=== PATIENT | female | born 1955 | race Caucasian/White ===

== ENCOUNTER → 2019-12-06 12:26 | Outpatient (BNVA) | payer MEDICARE, SELFPAY | PROVIDERS: Family Provider Nurse Practitioner Family; PCP Nurse Practitioner Family; Visit Provider Family Medicine | DX: J02.9 Acute pharyngitis, unspecified (principal); B37.0 Candidal stomatitis | CPT/HCPCS: 87081; 87880 ==

== ENCOUNTER → 2019-12-08 10:55 | Outpatient (BNVA) | payer MEDICARE, SELFPAY | PROVIDERS: Family Provider Nurse Practitioner Family; PCP Nurse Practitioner Family; Visit Provider Family Medicine | DX: I11.0 Hypertensive heart disease with heart failure (principal); I50.30 Unspecified diastolic (congestive) heart failure; E11.9 Type 2 diabetes mellitus without complications | CPT/HCPCS: 80053; 80061; 82044; 82728; 83036; 83550; 85025 ==

== ENCOUNTER 2019-12-20 15:25 | Outpatient (CLI) | payer MEDICARE, SELFPAY ==
--- NOTE | 2019-12-20 15:45 | USCV_ITS ---
Kenia Cano Age: 64 Gender: F : 1955 Exam Date: 12/20/2019 15:32 Ordering Phys: Carolyn Cesar DO Technologist: Edwardo Patterson Exam Location: [facility] [place] Indication: INCREASED ORTHOPNEA BP: 136 / 82 HR: 89 Rhythm: Atrial fibrillation Technical Quality: Fair MEASUREMENTS (Male / Female) Normal Values 2D ECHO LV Diastolic Diameter PLAX 4.9 cm 4.2 - 5.9 / 3.9 - 5.3 cm LV Systolic Diameter PLAX 2.6 cm IVS Diastolic Thickness 1.1 cm 0.6 - 1.0 / 0.6 - 0.9 cm IVS Systolic Thickness 1.4 cm LVPW Diastolic Thickness 1.0 cm 0.6 - 1.0 / 0.6 - 0.9 cm LVPW Systolic Thickness 1.7 cm LVOT Diameter 2.0 cm LV Ejection Fraction 2D Teich 77.4 % LV Ejection Fraction MOD 2C 71.4 % LV Ejection Fraction 2C AL 71.3 % LA Diameter 5.0 cm LA Width 5.1 cm LA Height 6.5 cm RA Width 4.2 cm RA Height 6.5 cm M-MODE LV Diastolic Diameter MM 5.1 cm 4.2 - 5.9 / 3.9 - 5.3 cm LV Systolic Diameter MM 3.4 cm LV Ejection Fraction MM Teich 62.1 % IVS Diastolic Thickness MM 0.7 cm 0.6 - 1.0 / 0.6 - 0.9 cm IVS Systolic Thickness MM 1.2 cm LVPW Diastolic Thickness MM 1.1 cm 0.6 - 1.0 / 0.6 - 0.9 cm LVPW Systolic Thickness MM 1.9 cm RV Diastolic Diameter MM 1.4 cm Aortic Annulus Diameter 3.6 cm LA Ao Ratio MM 1.4 MV E Point Septal Separation 0.4 cm DOPPLER AV Peak Velocity 146.0 cm/s LVOT Peak Velocity 115.0 cm/s AV Area Cont Eq vti 2.3 cm squared AV Area Cont Eq pk 2.5 cm squared MV Area PHT 5.0 cm squared Mitral E to A Ratio 2.4 MV E' Velocity 14.0 cm/s Mitral E to MV E' Ratio 9.3 Mitral E to LV E' Lateral Ratio 6.4 Mitral E to LV E' Septal Ratio 17.3 TR Peak Velocity 308.0 cm/s TR Peak Gradient 37.9 mmHg TV Peak E Velocity 175.0 cm/s Right Atrial Pressure 3.0 mmHg Pulmonary Artery Systolic Pressu 40.9 mmHg FINDINGS Left Ventricle Normal left ventricular size, systolic function and mildly increased wall thickness, with no regional wall motion abnormalities. Left ventricular ejection fraction is estimated at 65 %. Rhythm precludes evaluation of diastolic function. Right Ventricle Normal right ventricular size and systolic function. Right ventricular systolic pressure 40.9 mmHg. Right Atrium Mildly increased right atrial size. Left Atrium Mildly increased left atrial size. Mitral Valve Structurally normal mitral valve. No mitral valve stenosis. Trace mitral valve regurgitation. Aortic Valve Structurally normal trileaflet aortic valve. No aortic valve stenosis. No aortic valve regurgitation. Tricuspid Valve Mild tricuspid valve regurgitation. Pulmonic Valve Pulmonic valve not well visualized. Pericardium No pericardial effusion. Aorta Normal sized aortic root. CONCLUSIONS 1. Normal left ventricular size, systolic function and mildly increased wall thickness, with no regional wall motion abnormalities. Left ventricular ejection fraction is estimated at 65 %. 2. Normal right ventricular size and systolic function. 3. Mild biatrial enlargement. 4. Mild pulmonary hypertension with pulmonary artery pressure estimated at 41 mm Hg. 5. When compared to previous echocardiogram dated 12/11/2017, there may not have been any significant cahnge. Patient remained in atrial fibrillation through out the study. Vandana Katz MD (Electronically Signed) Final Date: 21 December 2019 14:01 S
== END 2019-12-20 15:26 | disposition home or self-care (01) ==
LOC: RAD 15:30
PROVIDERS: Family Provider Nurse Practitioner Family; PCP Family Medicine; Visit Provider Family Medicine
DX: R06.01 Orthopnea; I51.7 Cardiomegaly; I27.20 Pulmonary hypertension, unspecified
CPT/HCPCS: 93306

== ENCOUNTER 2020-01-17 20:35 | Observation (INO) | payer MEDICARE, SELFPAY ==
[2020-01-17 20:40] VITALS: BP 89/54; PULSE 90; RESP 20; TEMP 36.3; O2SAT 98; BMI 49.4
--- NOTE | 2020-01-17 20:48 | XR_ITS ---
WS: [id number] PORTABLE CHEST HISTORY: cough COMPARISON: 02/17/2019 Hyperinflated lungs. Changes of emphysema. Pleural thickening bilaterally but greatest on the RIGHT. Small RIGHT pleural effusion not excluded. No pneumothorax. Cardiac size: Mildly Mediastinum/Aorta: Mild atherosclerosis aorta. No osseous abnormality seen. XR/XR chest 1V portable [id number] IMPRESSION: 1. Chronic emphysema and moderate cardiomegaly. 2. No pneumonia. Tiny RIGHT effusion is not excluded.
--- NOTE | 2020-01-17 20:49 | ECG_ITS ---
Measurements Intervals [place] Rate: 82 P: [place]: 0 QRS: 37 QRSD: 102 T: 14 QT: 394 QTc: 462 ATRIAL FIBRILLATION POSSIBLE RIGHT VENTRICULAR CONDUCTION DELAY [RSR (QR) IN V1/V2] NONSPECIFIC ST & T-WAVE ABNORMALITY Compared to ECG 02/04/2019 18:03:43 T-wave abnormality now present ST (T wave) deviation no longer present Electronically Signed On 01-18-2020 19:36:10 CDT by Vandana Katz M.D. [id number]
--- NOTE | 2020-01-17 21:16 | ED_ITS ---
HPI - General Adult General: Chief complaint: General Medical Stated complaint: BLOOD PRESSURE ISSUES Time Seen by Provider: 01/17/20 20:37 History of Present Illness: HPI narrative: Kenia Redd is a nice 64-year-old female who comes in complaining of episodes of feeling dizzy/lightheaded, short of breath, diaphoretic and as though she could pass out. She will get postnasal drainage when this occurs as well. She states these episodes happen several times a week and have been going on for a long time. Her primary care physician Dr. Cesar has referred her to see Dr. Dwyer on the seventh of next month. She states her symptoms are becoming more frequent and more intense. Because of the intensity of tonight symptoms that is why she elected to come here to the hospital. She states when these episodes happen her blood pressure will usually be very low. EMS reports normotensive blood pressures all throughout their transport here to the hospital. The patient does not mention any pain and specifically she does not complain of any chest pain. Associated symptoms: Reports diaphoresis, dyspnea, malaise and nausea; Deny chest pain, confusion, headache(s), rash, palpitations, syncope or vomiting Review of Systems General: Reports: other (negative unless marked) Const: Reports: fatigue, malaise and diaphoresis; Denies: fever, chills or body aches Eyes: Denies: change in vision or blurry vision ENMT: Denies: throat pain, painful swallowing, hoarseness, ear pain, ear disc harge, Change in hearing or nasal discharge Card: Reports: pre-syncope; Denies: chest pain, palpitations, irregular heart rhythm, syncope, shortness of breath on exertion or shortness of breath when lying down Resp: Reports: shortness of breath; Denies: productive cough, non-productive cough, wheezing, coughing up blood or chest congestion GI: Reports: nausea; Denies: abdominal pain, vomiting, vomiting blood, coffee grounds in vomit, diarrhea, constipation, cramping, blood in stool or black tarry stool : Denies: flank pain, painful urination, urinary frequency, urinary urgency, decreased urine ouput, urinary incontinence or blood in urine Musc: Denies: neck pain, back pain, extremity pain, extremity swelling, joint pain, joint swelling, joint warmth or joint stiffness Skin/Breast: Denies: rash, skin tenderness or yellow skin Neuro: Denies: headache, numbness in extremities, weakness in extremities, changes in sensation, lack of coordination, difficulty walking, dizziness, vertigo or confusion Endo: Denies: excessive thirst, tired all the time, cold intolerance, exces sive sweating, flushing or hot flashes Amor/Lymph: Denies: easy bruising, easy bleeding, petechiae or enlarged lymph nodes All/Imm: Denies: hives, throat swelling, tongue swelling, facial swelling or acute wheezing PFSH ED PFSH: Medical History (Updated 01/18/20 @ 00:26 by Pam Up MD) Arthritis Atrial fibrillation Benign essential HTN Benign tumor of esophagus Bipolar disorder COPD (chronic obstructive pulmonary disease) DDD (degenerative disc disease) Diastolic heart failure Fibromyalgia GERD (gastroesophageal reflux disease) History of pleural effusion History of pulmonary embolism Hypotension Hypothyroidism Mitral regurgitation YUSRA (obstructive sleep apnea) Peripheral edema Polypharmacy PUD (peptic ulcer disease) Pulmonary HTN Spinal stenosis Surgical History S/P hysterectomy S/P thoracentesis S/P tubal ligation Family History Mother Hypertension Depression Bipolar disorder Father Hypertension Sister Bipolar disorder Daughter Bipolar disorder Social History (Updated 01/18/20 @ 00:23 by Pam Up MD) Smoking and tobacco status: former smoker Alcohol intake: never Substance/Drug Use: never Lives independently: Yes Physical Exam Const: COMMON NORMALS: no apparent distress, oriented x3, no limitations, healthy appearing and well nourished EXAM LIMITATIONS: no altered mental status GENERAL APPEARANCE: cooperative, well kempt and well developed ORIENTATION/CONSCIOUSNESS: Yes awake HENMT: COMMON NORMALS: normocephalic, head/scalp atraumatic, hearing grossly normal bilaterally, external ears normal, EAC's normal, external nose normal and moist oral mucous membranes HEAD & SCALP: normal to inspection, normocephalic and atraumatic FACE & SINUS: normal facial exam and face symmetric NOSE: external nose normal and nares normal EXTERNAL EAR: Yes external ears normal EXTERNAL AUDITORY CANAL: EAC's normal MOUTH: oral and palatal mucosa normal and tongue normal Eye: COMMON NORMALS: PERRL, EOMs intact bilaterally, conjunctivae normal and no scleral icterus GENERAL EYE: normal appearance of both eyes and normal light reflex CONJUNCTIVA: Yes conjunctivae normal SCLERA: sclerae normal CORNEA: Yes corneas normal PUPIL: Yes PERRL DIRECT OPHTHALMOSCOPY: Yes normal light reflex Neck/C-Spine: COMMON NORMALS: full ROM, no lymphadenopathy, supple, no m eningeal signs and no JVD GENERAL: Yes normal visual inspection and Yes trachea midline CERVICAL SPINE: Yes cervical ROM normal Chest: COMMONS NORMALS: inspection of chest normal and palpation of chest normal Resp: COMMON NORMALS: normal respiratory effort, no retractions, no use of accessory muscles and clear to auscultation bilaterally EFFORT & INSPECTION: Yes able to speak in complete sentences AUSCULTATION: clear to auscultation bilaterally Cardio: COMMON NORMALS: no JVD, regular rate, regular rhythm, S1 normal heart sound, S2 normal heart sound, no gallops, no clicks, no murmurs and no rub JUGULAR VENOUS DISTENTION: no JVD RATE: regular rate RHYTHM: regular rhythm HEART SOUNDS: S1 normal and S2 normal GI: COMMON NORMALS: soft to palpation, non-tender, no hepatosplenomegaly and no masses INSPECTION: Yes normal to inspection PALPATION: Yes soft and Yes no hepatosplenomegaly : COMMON NORMALS: Yes no CVA tenderness BLADDER/KIDNEY EXAM: Yes no CVA tenderness Back/Pelvis: COMMON NORMALS: no CVA tenderness, thoracic and lumbar spine normal to inspection, no thoracic nor lumbar tenderness and thoraco-lumbar ROM normal Extremity: COMMON NORMALS: normal to inspection, full ROM, normal capillary refill, no joint enlargement, no clubbing, cyanosis or edema and no calf tenderness Neuro: COMMON NORMALS: oriented x3, CN's II-XII intact bilaterally, moves all extremities, no focal motor deficits and no sensory deficits noted MENINGEAL SIGNS: Yes no meningeal signs Psych: COMMON NORMALS: mental status grossly normal, thought process normal, cooperative, affect normal, speech normal and activity/motor behavior normal APPEARANCE: Yes well kempt SPEECH: Yes normal speech THOUGHT PROCESS: normal thought process Skin: COMMON NORMALS: no rashes or lesions noted, skin turgor normal, no jaundice, no petechiae and no mottling GENERAL SKIN EXAM: no rashes or lesions noted and turgor normal Course Vital Signs: Vital signs: Vital Signs Temperature 97.5 F L 04/29/20 03:56 Pulse Rate 76 01/18/20 03:56 Respiratory Rate 18 01/18/20 03:56 Blood Pressure 144/78 01/18/20 03:56 Pulse Oximetry 96 01/18/20 03:56 MDM - General Adult MDM Narrative: Medical decision making narrative: The case is reviewed with Dr. Up, he agrees to go ahead and admit for dehydration, near syncope and elevated creatinine. The patient clinically does not appear to be in CHF as her chest x-ray appears to be at its baseline, she has no orthopnea or dyspnea on exertion. Urinalysis is pending at this time and we will treat that appropriately if her test comes back positive for infection. Lab Data: Attestation: I reviewed the patient's lab results. Labs: Lab Results 01/17/20 01/17/20 01/17/20 Range/Units 20:58 20:58 20:58 WBC 10.4 H (4.0-10.0) 10^3/ uL RBC 4.56 (4.1-5.3) 10^6/u L Hgb 12.4 (11.5-15.3) g/dL Hct 42.0 (37.0-47.0) % MCV 92.1 (81-99) fL MCH 27.2 L (28.0-34.0) pg MCHC 29.5 L (30.0-36.0) g/dL RDW 22.6 H (12.1-15.1) % Plt Count 362 (130-400) 10^3/c mm MPV 10.1 (7.4-10.4) fL Neut % (Auto) 60.8 % Lymph % (Auto) 26.4 % [place] % (Auto) 8.8 % Eos % (Auto) 2.3 % Baso % (Auto) 1.2 % Neut # (Auto) 6.3 (1.8-7.7) 10^3/u L Lymph # (Auto) 2.7 (0.8-4.8) 10^3/u L [place] # (Auto) 0.9 (0.2-0.9) 10^3/u L Eos # (Auto) 0.2 (0.0-0.8) 10^3/u L Baso # (Auto) 0.1 (0.0-0.1) 10^3/u L Nucleated RBC % (a uto) 0 % Nucleated RBCs # 0.0 /100WBC PT 18.10 H (10.5-13.3) SECO NDS INR 1.45 H (0.8-1.2) Sodium (136-145) mmol/L Potassium (3.5-5.1) mmol/L Chloride (98-107) mmol/L Carbon Dioxide (22-29) mmol/L Anion Gap (5-19) BUN (8-23) mg/dL Creatinine (0.5-0.9) mg/dL GFR Calculation (90-130) mL/min Glucose (65-115) mg/dL Calculated Osmolal ity (285-295) mOsm/k g Calcium (8.5-10.5) mg/dL Magnesium (1.7-2.3) mg/dL Total Bilirubin (0.15-1.2) mg/dL AST (0-32) U/L ALT (0-33) U/L Alkaline Phosphata se (35-105) IU/L Creatine Kinase (26-192) U/L Troponin T Baselin e 17 H (0-10) ng/mL NT-Pro-B Natriuret Pep (0-125) pg/mL Total Protein (6.6-8.7) g/dL Albumin (3.5-5.2) g/dL Globulin (1.3-4.6) g/dL Lipase (13-60) U/L //20 Range/Units 21:20 WBC (4.0-10.0) 10^3/ uL RBC (4.1-5.3) 10^6/u L Hgb (11.5-15.3) g/dL Hct (37.0-47.0) % MCV (81-99) fL MCH (28.0-34.0) pg MCHC (30.0-36.0) g/dL RDW (12.1-15.1) % Plt Count (130-400) 10^3/c mm MPV (7.4-10.4) fL Neut % (Auto) % Lymph % (Auto) % [place] % (Auto) % Eos % (Auto) % Baso % (Auto) % Neut # (Auto) (1.8-7.7) 10^3/u L Lymph # (Auto) (0.8-4.8) 10^3/u L [place] # (Auto) (0.2-0.9) 10^3/u L Eos # (Auto) (0.0-0.8) 10^3/u L Baso # (Auto) (0.0-0.1) 10^3/u L Nucleated RBC % (a uto) % Nucleated RBCs # /100WBC PT (10.5-13.3) SECO NDS INR (0.8-1.2) Sodium 138 (136-145) mmol/L Potassium 3.6 (3.5-5.1) mmol/L Chloride 98 (98-107) mmol/L Carbon Dioxide 28 (22-29) mmol/L Anion Gap 15.6 (5-19) BUN 19 (8-23) mg/dL Creatinine 2.2 H (0.5-0.9) mg/dL GFR Calculation 22.4 L (90-130) mL/min Glucose 121 H (65-115) mg/dL Calculated Osmolal ity 284 L (285-295) mOsm/k g Calcium 9.7 (8.5-10.5) mg/dL Magnesium 2.3 (1.7-2.3) mg/dL Total Bilirubin 0.4 (0.15-1.2) mg/dL AST 16 (0-32) U/L ALT 11 (0-33) U/L Alkaline Phosphata se 87 (35-105) IU/L Creatine Kinase 28 (26-192) U/L Troponin T Baselin e (0-10) ng/mL NT-Pro-B Natriuret Pep 1432 H (0-125) pg/mL Total Protein 6.6 (6.6-8.7) g/dL Albumin 3.8 (3.5-5.2) g/dL Globulin 2.8 (1.3-4.6) g/dL Lipase 25 (13-60) U/L Imaging Data^: CXR: My impression: Cardiomegaly. Bilateral effusions consistent with previous. EKG Data^: EKG 1: Attestation: I personally reviewed and interpreted this EKG as follows: EKG interpretation date: 01/17/20 EKG interpretation time: 21:40 Interpretation: A. fib/flutter with a ventricular rate of 92 beats a minute, normal axis, no with acute ST or T wave changes. Discharge Plan Discharge Patient Disposition: Placed in Observation Admit Provider: Pam Up Clinical Impression: Acute dehydration, Near syncope Condition: Stable Referrals: Carolyn Cesar DO [Primary Care Provider] - Verona Reynolds NP [Family Provider] - Discharge Date/Time: 01/18/20 01:08 Coding Level of Care Code ED Commercial [employer]umber for Chg Fwd Exam Comprehensive
[2020-01-17 21:17] LABS: Basophils # 0.1 10^3/uL (0.0-0.1); Basophils % 1.2 %; Eosinophils # 0.2 10^3/uL (0.0-0.8); Eosinophils % 2.3 %; Hemoglobin 12.4 g/dL (11.5-15.3); Lymphocytes # 2.7 10^3/uL (0.8-4.8); Lymphocytes % 26.4 %; Mean Corpuscular HGB Conc 29.5 g/dL (30.0-36.0); Mean Corpuscular Hemoglobin 27.2 pg (28.0-34.0); Mean Corpuscular Volume 92.1 fL (81-99); Mean Platelet Volume 10.1 fL (7.4-10.4); Monocytes # 0.9 10^3/uL (0.2-0.9); Monocytes % 8.8 %; Neutrophils # 6.3 10^3/uL (1.8-7.7); Neutrophils % 60.8 %; Nucleated Red Blood Cells % 0 %; Platelet Count 362 10^3/cmm (130-400); Red Blood Count 4.56 10^6/uL (4.1-5.3); Red Cell Distribution Width 22.6 % (12.1-15.1); White Blood Count 10.4 10^3/uL (4.0-10.0)
[2020-01-17 21:23] LABS: INR 1.45 (0.8-1.2)
[2020-01-17 21:31] LABS: Troponin(5th) Baseline 17 ng/mL (0-10)
[2020-01-17] MEDS: sodium chloride 0.9% 1,000 ML 100 ML IV (21:54)
[2020-01-17 21:55] VITALS: BP 120/84; PULSE 70; RESP 18; O2SAT 96
[2020-01-17] MEDS: sodium chloride 0.9% 1,000 ML 999 ML IV ×2 (21:55→23:54)
[2020-01-17 22:14] LABS: Alanine Aminotransferase 11 U/L (0-33); Albumin Level 3.8 g/dL (3.5-5.2); Alkaline Phosphatase 87 IU/L (35-105); Anion Gap 15.6 (5-19); Aspartate Amino Transferase 16 U/L (0-32); Blood Urea Nitrogen 19 mg/dL (8-23); Calcium 9.7 mg/dL (8.5-10.5); Carbon Dioxide 28 mmol/L (22-29); Chloride 98 mmol/L (98-107); Creatine Phosphokinase 28 U/L (26-192); Globulin 2.8 g/dL (1.3-4.6); Glomerular Filtration Rate 22.4 mL/min (90-130); Glucose 121 mg/dL (65-115); Lipase 25 U/L (13-60); Magnesium 2.3 mg/dL (1.7-2.3); NT Pro B Type Natriuretic Pept 1432 pg/mL (0-125); Osmolality Calculated 284 mOsm/kg (285-295); Potassium 3.6 mmol/L (3.5-5.1); Sodium 138 mmol/L (136-145); Total Bilirubin 0.4 mg/dL (0.15-1.2); Total Protein 6.6 g/dL (6.6-8.7)
[2020-01-17 22:30] VITALS: BP 117/81; BP 118/101; BP 135/108; PULSE 73; PULSE 87; PULSE 92
--- NOTE | 2020-01-17 23:05 | PM.HP ---
Providers/Chief Complaint Primary Care Provider: Carolyn Cesar DO Chief Complaint: BLOOD PRESSURE ISSUES History of Present Illness Kenia Cano is a 64 year old female carries diagnosis of PE, DVT chronic anticoagulation with Xarelto, diastolic congestive heart failure, COPD, YUSRA presented today with chief complaint of presyncope and low blood pressure. Patient has been evaluated by PCP, she was given meclizine, she is on multiple antihypertensives along to narcotics. She was asked to follow-up with cardiology, previous echo revealed preserved ejection fraction with pulmonary hypertension. No significant valve motion abnormalities were observed. In 2019 she had left-sided pleural effusion diagnosed as hemothorax hence rivaroxaban dose was decreased to 10 mg a day. Patient is stating that her symptoms started 3 months ago which were dizziness which she is describing as surroundings spinning, she was given meclizine which improved her symptoms but she has not been compliant with that medication. She has maintained a blood pressure log, mostly at night she becomes tachycardic and hypertensive and in the morning after taking 4 antihypertensives her blood pressure bottoms out. No recent falls, she is denying chest pain, she is endorsing use of CPAP for sleep apnea, endorsing orthopnea. Her leg swelling has been improved. Diagnostics in ER revealed hypertension systolic blood pressure 160 mmHg, heart rate 80 A. fib without RVR, saturating well on room air, high BNP 1432, chest x-ray reveals chronic cardiomegaly bilateral pleural effusion, EKG shows A. fib without RVR without ischemic changes Patient felt dizzy when I tried to do Wells-Hallpike maneuver however nystagmus was not observed She was given 1 L normal saline which I have discontinued Review of Systems Const: Denies: fever or chills Eyes: Denies: change in vision ENMT: Denies: throat pain Card: Reports: irregular heart rhythm, pre-syncope, shortness of breath on exertion and shortness of breath when lying down; Denies: chest pain or swelling of feet/ankles Resp: Reports: shortness of breath; Denies: non-productive cough GI: Denies: abdominal pain, nausea or vomiting : Denies: flank pain Musc: Denies: neck pain Skin/Breast: Denies: rash Neuro: Denies: headache Psych: Denies: anxiety Endo: Denies: excessive urination Amor/Lymph: Denies: easy bruising All/Imm: Denies: hives Medications/Allergies Home Medications Medication Instructions Recorded Confirmed Last Taken Type albuterol sulfate 2.5 mg INHALATION BID PRN ml 10/05/19 12/08/19 Unknown History aspirin 81 mg tablet,delayed 81 mg PO DAILY tab 10/05/19 12/08/19 Unknown History release cholecalciferol (vitamin D3) 25 2,000 unit PO DAILY cap 10/05/19 12/08/19 Unknown History mcg (1,000 unit) capsule fluticasone propionate 50 2 spray INTRANASAL DAILY ml 10/05/19 12/08/19 Unknown History mcg/actuation nasal spray,suspension furosemide 20 mg tablet 40 mg PO DAILY tab 10/05/19 12/08/19 Unknown History gabapentin 300 mg capsule 300 mg PO QID PRN cap 10/05/19 12/08/19 Unknown History hydrochlorothiazide 12.5 mg tablet 12.5 mg PO DAILY tab 10/05/19 12/08/19 Unknown History hydrocodone 10 mg-acetaminophen 1 tab PO Q6H PRN 10/05/19 12/08/19 Unknown History 325 mg tablet ipratropium 20 mcg-albuterol 100 2 puff INHALATION QID gm 10/05/19 12/08/19 Unknown History mcg/actuation mist for inhalation loperamide 2 mg capsule 2 mg PO DIRECTED PRN cap 10/05/19 12/08/19 Unknown History multivitamin 1 tab PO DAILY tab 10/05/19 12/08/19 Unknown History potassium chloride 10 mEq 10 meq PO BID 10/05/19 12/08/19 Unknown History tablet,extended release rivaroxaban 10 mg tablet 10 mg PO DAILY tab 10/05/19 12/08/19 Unknown History tizanidine 4 mg capsule 8 mg PO TID PRN cap 10/05/19 12/08/19 Unknown History morphine 30 mg capsule,extended 30 mg PO BID cap 11/07/19 12/08/19 Unknown History release 24 hr multiphase isosorbide mononitrate 30 mg 15 mg PO BID #60 tab 11/21/19 12/08/19 Unknown Rx tablet,extended release 24 hr clotrimazole 10 mg lorelei 10 mg MUCOUS MEM .COMPLEX #35 tab 12/06/19 12/08/19 Unknown Rx fluoxetine 40 mg capsule 40 mg PO DAILY #90 cap 12/09/19 Unknown Rx omeprazole 20 mg capsule,delayed 20 mg PO BID #90 cap 12/09/19 Unknown Rx release atorvastatin 10 mg tablet 10 mg PO DAILY #45 tab 12/12/19 Unknown Rx ferrous sulfate 325 mg (65 mg 325 mg PO DAILY #30 tab 12/12/19 Unknown Rx iron) tablet blood sugar diagnostic #100 each 12/13/19 Unknown Rx blood-glucose meter #1 each 12/13/19 Unknown Rx lancets #200 each 12/13/19 Unknown Rx metoprolol tartrate 50 mg tablet 50 mg PO BID #60 tab 12/28/19 Unknown Rx Allergies Allergy/AdvReac Type Severity Reaction Status Date / Time clindamycin Allergy Unknown Unknown Verified 12/08/19 10:27 duloxetine [From Cymbalta] Allergy Unknown Unknown Verified 12/08/19 10:27 lanolin Allergy Unknown Unknown Verified 12/08/19 10:27 Sulfa (Sulfonamide Allergy Unknown Unknown Verified 12/08/19 10:27 Antibiotics) venlafaxine Allergy Unknown Unknown Verified 12/08/19 10:27 PFSH Acute PFSH: Medical History Arthritis Atrial fibrillation Benign essential HTN Benign tumor of esophagus Bipolar disorder COPD (chronic obstructive pulmonary disease) DDD (degenerative disc disease) Diastolic heart failure Fibromyalgia GERD (gastroesophageal reflux disease) History of pleural effusion History of pulmonary embolism Hypotension Hypothyroidism Mitral regurgitation YUSRA (obstructive sleep apnea) Peripheral edema PUD (peptic ulcer disease) Pulmonary HTN Spinal stenosis Surgical History S/P hysterectomy S/P thoracentesis S/P tubal ligation Family History Mother Hypertension Depression Bipolar disorder Father Hypertension Sister Bipolar disorder Daughter Bipolar disorder Social History (Updated 01/18/20 @ 00:23 by Pam Up MD) Smoking and tobacco status: former smoker Alcohol intake: never Substance/Drug Use: never Lives independently: Yes Vitals/I&O/Wt Last Vital Signs Temp 97.3 F L 01/17/20 20:40 Pulse 73 01/17/20 22:30 Resp 18 01/17/20 21:55 BP 117/81 01/17/20 22:30 Pulse Ox 96 01/17/20 21:55 Weight last 48 hrs Weight 122.47 kg Physical Exam Narrative: EXAM NARRATIVE: Morbidly obese female, very pleasant Neurologically nonfocal exam Sitting in semi-[place] position, saturating well on room air Variable S1-S2, no active signs of fluid overload Lungs reveal bilateral breath sounds with mild rhonchi at the bases Abdomen soft, distended, visceral obesity, bowel sounds present EOMI, PERRLA Dell-Hallpike maneuver negative did not notice any nystagmus however patient felt dizzy on change of position of the head No signs ischemia gangrene ulcer of lower extremities Appropriate mood and affect Patient has multiple tender points, history of fibromyalgia Data : 01/17/20 20:58 01/17/20 21:20 Micro: Microbiology 01/17/20 20:58 Blood Culture - Preliminary Blood SPECIMEN COLLECTED 01/17/20 20:55 Blood Culture - Preliminary Blood SPECIMEN COLLECTED A&P Assessment and plan (1) Hypotension: Status: Acute (2) Polypharmacy: Status: Acute (3) Near syncope: Status: Acute (4) Benign essential HTN: Status: Chronic (5) Diastolic heart failure: Status: Chronic Qualifiers: Heart failure chronicity: chronic Qualified Code(s): I50.32 - Chronic diastolic (congestive) heart failure (6) Acute worsening of stage 3 chronic kidney disease: Status: Acute (7) Morbid obesity: Status: Acute (8) Sleep apnea: Status: Acute Additional A&P Information Presyncope due to hypotension Dell-Hallpike maneuver negative however patient felt dizzy on change of position of head No EKG changes for any coronary ischemia Patient is already anticoagulated less likely to be PE to be the cause of presyncope I believe her symptoms are secondary to polypharmacy due to use of 4 antihypertensives including 2 diuretics Add meclizine and hold antihypertensives Acute on chronic diastolic congestive heart failure exacerbation Heart failure preserved ejection fraction exacerbation due to noncompliance with CPAP for her sleep apnea Her presentation is consistent with right-sided heart failure I would continue Lasix, hold hydrochlorothiazide Discontinue fluids that was started in the ER Acute on chronic kidney disease stage III Baseline creatinine seems to be normal, current creatinine 2.2 This seems secondary to cardiorenal etiology due to congestive heart failure and hypotension Monitor creatinine, anticipating improvement with diuresis A. fib without RVR Continue low-dose of rivoraxaban I would continue metoprolol to voice withdrawal from beta-shannan Polypharmacy I would hold her opioids, hold Imdur and hydrochlorothiazide Considering history of sleep apnea and use of opioids I have counseled patient that she will be at risk of respiratory failure especially with use of opioids and underlying multiple comorbidities, if needed for her degenerative joint disease I would use oxycodone only for as needed use -Needs significant reduction in her medications to avoid hypotension and readmissions Sleep apnea: Auto titration CPAP at night Full code DVT prophylaxis patient also already anticoagulated with xa inhibitor Cardiac diet Attestations Medical Necessity Statement*: Anticipating discharge in less than 48 hours, needs adjustment of medications because of polypharmacy induced hypotension Time Spent in Patient Care: 45 Coding Level of Care Code Acute News Technical Director for Carlos Aguayo Diagnoses Hypotension I95.9 Polypharmacy Z79.899 Near syncope R55 Benign essential HTN I10 Diastolic heart failure I50.32 Heart failure chronicity: chronic Acute worsening of stage 3 chronic kidney disease N18.3 Morbid obesity E66.01 Sleep apnea G47.30
[2020-01-17 23:30] LABS: Amphetamines Screen Urine Negative (Negative); Barbiturates Screen Urine Negative (Negative); Benzodiazepines Screen Urine Negative (Negative); Cocaine Screen Urine Negative (Negative); Opiate Screen Urine Positive (Negative); PCP Screen Urine Negative (Negative); THC Screen Urine Negative (Negative)
[2020-01-17 23:31] LABS: Urine Appearance Cloudy (CLEAR); Urine Color Yellow (Yellow); pH Urine 6 (5-7)
[2020-01-17 23:32] LABS: Add Urine Culture? Yes; Bacteria Urine 2+; Bilirubin Urine Neg (NEGATIVE); Blood Urine 2+ (Negative); Glucose Urine UA Norm (Normal); Ketones Urine Negative (Negative); Leukocyte Esterase Urine 1+ (Negative); Nitrate Urine Positive (Negative); Protein Urine Neg (Negative); RBC Urine 0-4 /hpf (0-2); Squamous Epithelial Cell Urine 0-4 (0-5); Urobilinogen Urine Norm (Negative); WBC Urine 25-40 /hpf (0-5)
[2020-01-18] VITALS (16 sets, daily range): BP systolic 128–155; BP diastolic 70–96; PULSE 73–107; RESP 16–22; TEMP 36.4–36.9; O2SAT 94–99
[2020-01-18] MEDS: cefTRIAXone 1,000 MG in sodium chloride 0.9% (plus) 50 ML 100 MG IV (00:49)
[2020-01-18] MEDS: metoprolol tartrate 25 mg Tablet PO ×2 (01:54→09:18)
[2020-01-18] MEDS: oxyCODONE 5 mg IR Tab/Cap PO ×3 (02:01→13:43)
[2020-01-18 05:17] LABS: Basophils # 0.1 10^3/uL (0.0-0.1); Basophils % 1.1 %; Eosinophils # 0.4 10^3/uL (0.0-0.8); Eosinophils % 4.3 %; Hematocrit 42.3 % (37.0-47.0); Hemoglobin 12.4 g/dL (11.5-15.3); Lymphocytes % 34.2 %; Mean Corpuscular HGB Conc 29.3 g/dL (30.0-36.0); Mean Corpuscular Hemoglobin 26.8 pg (28.0-34.0); Mean Corpuscular Volume 91.4 fL (81-99); Mean Platelet Volume 10.1 fL (7.4-10.4); Monocytes # 0.8 10^3/uL (0.2-0.9); Monocytes % 8.8 %; Neutrophils # 4.5 10^3/uL (1.8-7.7); Neutrophils % 51.3 %; Nucleated Red Blood Cells % 0 %; Platelet Count 330 10^3/cmm (130-400); Red Blood Count 4.63 10^6/uL (4.1-5.3); Red Cell Distribution Width 22.5 % (12.1-15.1); White Blood Count 8.8 10^3/uL (4.0-10.0)
[2020-01-18 05:39] LABS: Anion Gap 15.3 (5-19); Blood Urea Nitrogen 18 mg/dL (8-23); Calcium 9.9 mg/dL (8.5-10.5); Carbon Dioxide 28 mmol/L (22-29); Chloride 100 mmol/L (98-107); Glomerular Filtration Rate 41.1 mL/min (90-130); Glucose 125 mg/dL (65-115); Osmolality Calculated 288 mOsm/kg (285-295); Potassium 3.3 mmol/L (3.5-5.1); Sodium 140 mmol/L (136-145)
[2020-01-18] MEDS: ipratropium-albuterol 3 mL Neb INHALATION (08:31)
[2020-01-18] MEDS: FUROsemide 40 mg Tablet PO (09:17)
[2020-01-18] MEDS: atorvastatin 40 mg Tablet 10 MG PO (09:18)
[2020-01-18] MEDS: fluoxetine 20 mg Capsule 40 MG PO (09:18)
[2020-01-18] MEDS: meclizine 25 mg tablet PO (09:18)
[2020-01-18] MEDS: pantoprazole DR 40 mg Tablet PO (09:18)
[2020-01-18] MEDS: aspirin 81 mg EC Tablet PO (09:18)
[2020-01-18] MEDS: rivaroxaban 10 mg Tablet PO (09:18)
--- NOTE | 2020-01-18 09:57 | PC.CHAP ---
Pastoral Care Encounter/Spiritual Assessment Type of Contact [] Declined computer applications instructor visit [] Patient/Family/Request visit [] Outpatient visit [] Follow-up visit [] Physician referral [] Code/Alert [x Routine visit [] Staff referral [] Actively dying [] Patient sleeping [] Family support [] [] Out of room [] Palliative care [] [] Receiving care in room [] Pre-surgical visit [] Trauma [] Long length of stay [] ICU visit [] Other: Relational/Emotional Strength [] Patient feels connected with others/family/visitors/staff [] Distress [] Loneliness/isolation [] Abandonment Spirituality of Patient [] Person of Niurka [] Attends Moravian of their Niurka [] Believes in Prayer [] Reads Bible or Caodaism materials [] There are Spiritual issues to be addressed Fire Control Assistant Interventions [x] Prayer [] Active listening [] Non-anxious presence [] Spiritual/emotional support [] Crisis/trauma care [] Spiritual counseling [] Bereavement support [] Provided bereavement packet [] Provided Bible/devotional materials [] Provided toy/stuffed animal, coloring book to patient or family member [] Provided Communion [] Anointing/[place] [] Salvation [x] Completed spiritual assessment [] Other: Impact on Illness or Injury [] Angry [] Fearful [] Anxious [] Often cries [] Exhaustion [] Unable to work [] Unable to attend nondenominational [] Unable to walk/stand [] Unable to read [] Unable to drive [] Unable to eat/drink [] Unable to sleep [] Unable to be with family [] Patient intubated [] Other: Summary Patient feeling better Time spent with patient 5 min
--- NOTE | 2020-01-18 22:34 | P.DS_ITS ---
Discharge Providers Date of Admission: 01/17/20 23:05 Date of Discharge: January 18, 2020 Attending Provider at Admission: Pam Up MD Attending Provider at Discharge: Sebastian Hauser Primary Care Provider: Carolyn Cesar DO Diagnoses at Discharge Discharge Diagnosis (1) Hypotension: Status: Acute (2) Polypharmacy: Status: Acute (3) Near syncope: Status: Acute (4) Benign essential HTN: Status: Chronic (5) Diastolic heart failure: Status: Chronic Qualifiers: Heart failure chronicity: chronic Qualified Code(s): I50.32 - Chronic diastolic (congestive) heart failure (6) Acute worsening of stage 3 chronic kidney disease: Status: Acute (7) Morbid obesity: Status: Acute (8) Sleep apnea: Status: Acute Reason for Visit Reason for Visit: Reason For Visit: BLOOD PRESSURE ISSUES Hospital Course Hospital Course: Pleasant 64-year-old lady was placed in observation after presenting with fluctuation in blood pressure, episodes of dizziness, noted to have hypotension during the hospitalization, suspected secondary to a number of her medications, possibly dehydration as well. She had no persistence of dizziness. Her blood pressure improved, and orthostatic blood pressures the next day were normal after holding a number of her medications. Discussed with her, and she does state at home her blood pressures do tend to fluctuate quite a bit. High in the evening, a number of times low in the morning. Discussed with her to monitor closely. She does feel she may have been somewhat dehydrated after going outside. She was treated with IV hydration initially, although subsequently due to concern for CHF exacerbation received a dose of Lasix. Incidentally noted possible urinary tract infection on presentation as well. Received a dose of Rocephin. Will give prescription of Levaquin to complete at home. Final urine so far not reported, please follow-up on the final result if available. On discharge her HCTZ is held, metoprolol and gabapentin dose is decreased. She is already on anticoagulation for atrial fibrillation. And is on aspirin. Suspicion that this is related to CVA/TIA is low given her symptoms and observed hypotension, however, she is referred for assessment by carotid Doppler ultrasonography. Please follow-up the results with her. For now will attempt to escalate atorvastatin dose to 20 mg. Attempt to bring toward high- dose atorvastatin equivalent if this is possible. Physical Exam Const: COMMON NORMALS: no apparent distress (She reports is feeling much better. Ready to return home.) and oriented x3 NUTRITIONAL APPEARANCE: overweight HENMT: COMMON NORMALS: oropharynx normal Neck/C-Spine: COMMON NORMALS: no JVD Resp: COMMON NORMALS: normal respiratory effort and clear to auscultation braulio aterally AUSCULTATION: clear to auscultation bilaterally Cardio: COMMON NORMALS: no JVD, regular rhythm, S1 normal heart sound, S2 normal heart sound and no murmurs RHYTHM: regular rhythm HEART SOUNDS: S1 normal and S2 normal GI: COMMON NORMALS: normal to inspection, nondistended, normoactive bowel sounds, soft to palpation and non-tender PALPATION: Yes soft Extremity: COMMON NORMALS: no joint enlargement and no pedal edema Neuro: COMMON NORMALS: oriented x3 and moves all extremities Skin: COMMON NORMALS: no rashes or lesions noted GENERAL SKIN EXAM: no rashes or lesions noted Discharge Data Data Completed and Pending: Completed Studies During Hospitalization Category Date Time Status XR chest 1V tray ble [id number] Stat Exams 01/17/20 20:48 Completed Pending at discharge Category Date Time Status Arterial Blood Ga s W/O Coox Routine Lab 01/17/20 21:31 Received Blood Culture Sta t Lab 01/17/20 20:58 Results Urine Culture Sta t Lab 01/17/20 23:09 Received Labs from last 24 hours 01/18/20 01/18/20 01/17/20 04:46 04:46 23:31 WBC 8.8 RBC 4.63 Hgb 12.4 Hct 42.3 MCV 91.4 MCH 26.8 L MCHC 29.3 L RDW 22.5 H Plt Count 330 MPV 10.1 Neut % (Auto) 51.3 Lymph % (Auto) 34.2 [place] % (Auto) 8.8 Eos % (Auto) 4.3 Baso % (Auto) 1.1 Neut # (Auto) 4.5 Lymph # (Auto) 3.0 [place] # (Auto) 0.8 Eos # (Auto) 0.4 Baso # (Auto) 0.1 Nucleated RBC % (a uto) 0 Nucleated RBCs # 0.0 Sodium 140 Potassium 3.3 L Chloride 100 Carbon Dioxide 28 Anion Gap 15.3 BUN 18 Creatinine 1.3 H GFR Calculation 41.1 L Glucose 125 H Calculated Osmolal ity 288 Calcium 9.9 Troponin T 120 Min rich 12.70 H Delta Troponin T -4.30 L Urine Color Urine Appearance Urine pH Ur Specific Gravit y Urine Protein Urine Glucose (UA) Urine Ketones Urine Blood Urine Nitrate Urine Bilirubin Urine Urobilinogen Ur Leukocyte Esther ase Urine RBC Urine WBC Ur Squamous Epith Cells Urine Bacteria Urine Opiates Scre en Ur Barbiturates Sc reen Ur Phencyclidine S crn Ur Amphetamines Sc reen U Benzodiazepines Scrn Urine Cocaine Scre en U Marijuana (THC) Screen 01/17/20 01/17/20 23:09 23:09 WBC RBC Hgb Hct MCV MCH MCHC RDW Plt Count MPV Neut % (Auto) Lymph % (Auto) [place] % (Auto) Eos % (Auto) Baso % (Auto) Neut # (Auto) Lymph # (Auto) [place] # (Auto) Eos # (Auto) Baso # (Auto) Nucleated RBC % (a uto) Nucleated RBCs # Sodium Potassium Chloride Carbon Dioxide Anion Gap BUN Creatinine GFR Calculation Glucose Calculated Osmolal ity Calcium Troponin T 120 Min rich Delta Troponin T Urine Color Yellow Urine Appearance Cloudy Urine pH 6 Ur Specific Gravit y 1.010 Urine Protein Neg Urine Glucose (UA) Norm Urine Ketones Negative Urine Blood 2+ H Urine Nitrate Positive H Urine Bilirubin Neg Urine Urobilinogen Norm Ur Leukocyte Esther ase 1+ H Urine RBC 0-4 H Urine WBC 25-40 H Ur Squamous Epith Cells 0-4 H Urine Bacteria 2+ H Urine Opiates Scre en Positive H Ur Barbiturates Sc reen Negative Ur Phencyclidine S crn Negative Ur Amphetamines Sc reen Negative U Benzodiazepines Scrn Negative Urine Cocaine Scre en Negative U Marijuana (THC) Screen Negative Vitals: Last Vital Signs Temp 98.2 F 01/18/20 14:06 Pulse 104 H 01/18/20 14:06 Resp 18 01/18/20 14:06 BP 131/82 01/18/20 14:06 Pulse Ox 96 01/18/20 14:06 Discharge Plan Discharge Patient Disposition: Home, Self-Care Condition: Stable Prescriptions: New Levaquin 750 mg tablet 750 mg PO DAILY 5 Days Qty: 5 RF: 0 Continued morphine 30 mg capsule, ER multiphase 24 hr 30 mg PO BID RF: 0 furosemide [Lasix] 20 mg tablet 40 mg PO DAILY RF: 0 potassium chloride [Klor-Con 10] 10 mEq tablet extended release 10 meq PO BID RF: 0 tizanidine 4 mg capsule 8 mg PO TID PRNRF: 0 Combivent Respimat 20-100 mcg/actuation mist 2 puff INHALATION QID RF: 0 albuterol sulfate 2.5 mg /3 mL (0.083 %) solution for nebulization 2.5 mg INHALATION BID PRNRF: 0 Xarelto 10 mg tablet 10 mg PO DAILY RF: 0 aspirin [Adult Low Dose Aspirin] 81 mg tablet,delayed release (DR/EC) 81 mg PO DAILY RF: 0 fluticasone propionate [Allergy Relief (fluticasone)] 50 mcg/actuation spray,suspension 2 spray INTRANASAL DAILY RF: 0 hydrocodone-acetaminophen 10-325 mg tablet 1 tab PO Q6H PRNRF: 0 cholecalciferol (vitamin D3) 1,000 unit capsule 2,000 unit PO DAILY RF: 0 loperamide [Anti-Diarrheal (loperamide)] 2 mg capsule 2 mg PO DIRECTED PRNRF: 0 multivitamin Tablet 1 tab PO DAILY RF: 0 clotrimazole 10 mg lorelei 10 mg MUCOUS MEM .COMPLEX Qty: 35 RF: 0 isosorbide mononitrate 30 mg tablet extended release 24 hr 15 mg PO BID Qty: 60 RF: 2 fluoxetine 40 mg capsule 40 mg PO DAILY Qty: 90 RF: 2 omeprazole 20 mg capsule,delayed release(DR/EC) 20 mg PO BID Qty: 90 RF: 4 ferrous sulfate 325 mg (65 mg iron) tablet 325 mg PO DAILY Qty: 30 RF: 0 Changed metoprolol tartrate 50 mg tablet 25 mg PO BID Qty: 60 RF: 0 gabapentin 300 mg capsule 300 mg PO BID Qty: 0 RF: 0 Lipitor 10 mg tablet 20 mg PO DAILY Qty: 60 RF: 1 Held hydrochlorothiazide 12.5 mg tablet 12.5 mg PO DAILY RF: 0 Hold Instructions: Resume on 01/25/20. No Action (DME) blood-glucose meter [Accu-Chek Allie Plus Meter] Misc See Rx Instructions .ROUTE .MEDSUPPLY Qty: 1 RF: 0 (DME) Accu-Chek Allie Plus test strp Strip See Rx Instructions .ROUTE .MEDSUPPLY Qty: 100 RF: 2 (DME) lancets Misc See Rx Instructions .ROUTE .MEDSUPPLY Qty: 200 RF: 2 Discharge Orders: Discharge Order (Routine); Ordered 01/18/20 Ordered By: Sebastian Hauser Other Ambulatory Orders: CV carotid duplex BI* [id number] (Routine) Timeframe: 1 Week Facility: [facility] - Location: [facility] Ordered By: Sebastian Hauser Referrals: [facility] [Outside] (Your information was sent to [facility] to see if they can provide home health services. If you do not hear from them in 1-2 days please call the number provided. You may also call [facility] Case Management with questions or concerns at [phone] ext. [phone].) Carolyn Cesar DO [Primary Care Provider] - 01/24/20 2:30 pm Discharge Diet: Cardiac Discharge Activity: Increase activity as tolerated Patient Instructions: Metoprolol (By mouth), Gabapentin (By mouth), Atorvastatin (By mouth), Syncope, Heart Failure (DC), Hypotension (DC), CHF Stoplight Activity Restrictions/Additional Instructions: Maintain fall precautions. Take it slow when sitting up from laying, and then standing up. Be prepared to sit down if you get dizzy. If you get persistent vertigo (if you are feeling dizzy with surrounding spinning about you), which is not improving, or any numbness, or weakness anywhere, please seek medical attention without delay. Please follow-up with your primary care doctor with regards to Doppler ultrasound of your carotid arteries (arteries in your neck). Discharge Date/Time: 01/18/20 14:16 Discharge Attestations Time Spent in Discharge Care*: greater than 30 min Quality Metrics Clinical Quality Measures During this hospital stay, did patient experience: None Coding Level of Care Code Acute Physicist Astrophysics for Chg Fwd Diagnoses Hypotension I95.9 Polypharmacy Z79.899 Near syncope R55 Benign essential HTN I10 Diastolic heart failure I50.32 Heart failure chronicity: chronic Acute worsening of stage 3 chronic kidney disease N18.3 Morbid obesity E66.01 Sleep apnea G47.30
--- NOTE | 2020-01-19 12:06 | PC.SOCIAL ---
Notified Dr Hauser of gram + cocci in clusters 2 out of 4 (one set). No sensitivities and per Quyen unless provider requests wont work up further since only one set and skin shelly type. Dr Hauser will call [facility] and discuss and possibly have further workup.
[2020-01-22 12:04] LABS: ABG PCO2 45.3 mmHg (35-45); ABG PH Result 7.39 (7.35-7.45); Arterial Blood Gas Hematocrit 40.1 % (37-47); Base Excess ABG 1.8 mmol/L (-2.0-2.0); Blood Gas Allen Test Pos; Blood Gas Sample Site Radial, right; Blood Gas Sample Type Arterial; HCO3 ABG 27.3 mmol/L (22-26); Oxygen Device NC; PO2 ABG 59.1 mmHg (80.0-100.0)
== END 2020-01-18 14:16 | disposition home or self-care (01) ==
LOC: ER 23:29 → MEDSURG 01-18 07:38
PROVIDERS: Admitting Provider Internal Medicine; Emergency Provider Emergency Medicine; Family Provider Nurse Practitioner Family; PCP Family Medicine; Visit Provider Internal Medicine
DX: I95.9 Hypotension, unspecified (principal); Z79.899 Other long term (current) drug therapy; R55 Syncope and collapse; I13.0 Hypertensive heart and chronic kidney disease with heart failure and stage 1 through stage 4 chronic kidney disease, or unspecified chronic kidney disease; N18.3 Chronic kidney disease, stage 3 (moderate); I50.32 Chronic diastolic (congestive) heart failure; E66.01 Morbid (severe) obesity due to excess calories; Z68.42 Body mass index [BMI] 45.0-49.9, adult; Z86.711 Personal history of pulmonary embolism; Z86.718 Personal history of other venous thrombosis and embolism; J44.9 Chronic obstructive pulmonary disease, unspecified; M19.90 Unspecified osteoarthritis, unspecified site; I48.91 Unspecified atrial fibrillation; M79.7 Fibromyalgia; G47.33 Obstructive sleep apnea (adult) (pediatric); Z87.11 Personal history of peptic ulcer disease; Z82.49 Family history of ischemic heart disease and other diseases of the circulatory system; Z87.891 Personal history of nicotine dependence; Z79.01 Long term (current) use of anticoagulants; Z79.891 Long term (current) use of opiate analgesic; Z23 Encounter for immunization
CPT/HCPCS: 12345; 36415; 36600; 71045; 80048; 80053; 80306; 81001; 82550; 82803; 83690; 83735; 83880; 84484; 85025; 85610; 87040; 87077; 87086; 87186; 87205; 90471; 90686; 93005; 94640; 94660; 96361; 96365; 96375; 99284; 99285; G0378; J0696; J7030; J8597

== ENCOUNTER 2020-02-07 12:31 | Outpatient (CLI) | payer MEDICARE, SELFPAY ==
--- NOTE | 2020-02-07 12:45 | USCV_ITS ---
Jerome Kenia Age: 65 Gender: F : 1955 Exam Date: 02/07/2020 12:48 Ordering Phys: Sebastian Hauser MD Technologist: Edwardo Patterson [place] [facility] [place]ication: VERTIGO Risk Factors: None Previous Vascular Surgery: None Right Brachial BP: / Left Brachial BP: / Right Left Velocity (cm/s) Spectral Plaque Velocity (cm/s) Spectral Plaque Syst/Diast Broadening Syst/Diast Broadening 70.60/ 18.70 Prox CCA 67.00 / 27.30 68.40/ 23.20 Mid CCA 62.00 / 20.50 56.20/ 16.50 Distal CCA 47.10 / 18.60 46.50/ 22.90 Prox ICA 61.20 / 19.20 64.50/ 29.80 Mid ICA 57.60 / 19.20 50.90/ 23.60 Distal ICA 51.20 / 13.70 115.50 ECA 39.40 0.91 ICA/CCA 0.91 Antegrade Vertebral Antegrade 35.00/ 18.40 cm/s 35.60/ 15.40 cm/s Tri Subclavian Tri 79.40 84.30 CONCLUSIONS Right ICA stenosis <50%. Left ICA stenosis <50%. Normal antegrade Doppler flow noted in the right vertebral artery. Normal antegrade Doppler flow noted in the left vertebral artery. Travon Ramsey MD (Electronically Signed) Final Date: 07 Feb 2020 17:06 S
== END 2020-02-07 12:32 | disposition home or self-care (01) ==
LOC: RAD 12:35
PROVIDERS: Family Provider Nurse Practitioner Family; PCP Family Medicine; Visit Provider Internal Medicine
DX: R42 Dizziness and giddiness (principal); I65.23 Occlusion and stenosis of bilateral carotid arteries
CPT/HCPCS: 93880

== ENCOUNTER 2020-02-14 14:29 | Inpatient (IN) | payer MEDICARE, SELFPAY ==
[2020-02-14] VITALS (20 sets, daily range): BP systolic 93–215; BP diastolic 48–156; PULSE 84–135; RESP 15–36; TEMP 37–37.3; O2SAT 92–99; BMI 51.2
--- NOTE | 2020-02-14 14:36 | XR_ITS ---
WS: [id number] PORTABLE CHEST HISTORY: dyspnea COMPARISON: 01/17/2020 Significant change in appearance of lungs since the prior study. Diffuse coarsened interstitial thick ening and pulmonary congestion. Superimposed on changes of emphysema. Small pleural effusions. Cardiac size: Mildly enlarged cardiac silhouette. Mediastinum/Aorta: Mild atherosclerosis aorta. No osseous abnormality seen. XR/XR chest 1V portable [id number] IMPRESSION: 1. Moderate pulmonary venous congestion superimposed on emphysema. 2. Small bilateral pleural effusions.
--- NOTE | 2020-02-14 14:37 | ED_ITS ---
HPI - SOB/Dyspnea General: Chief Complaint: Shortness of Breath/Dyspnea Stated Complaint: resp distress Time Seen by Provider: 02/14/20 14:36 History of Present Illness: HPI Narrative: Shortness of breath. The patient stated began approximately 2:58 AM this morning. Patient says she was well at bedtime. She denies fever chills or cough. MD elicited complaint: shortness of breath Review of Systems General: Reports: 10 or more systems reviewed and unremarkable except in HPI and below Resp: Reports: dyspnea PFSH ED PFSH: Medical History Arthritis Atrial fibrillation Benign essential HTN Benign tumor of esophagus Bipolar disorder COPD (chronic obstructive pulmonary disease) DDD (degenerative disc disease) Diastolic heart failure Fibromyalgia GERD (gastroesophageal reflux disease) History of pleural effusion History of pulmonary embolism Hypotension Hypothyroidism Mitral regurgitation YUSRA (obstructive sleep apnea) Peripheral edema Polypharmacy PUD (peptic ulcer disease) Pulmonary HTN Spinal stenosis Surgical History S/P hysterectomy S/P thoracentesis S/P tubal ligation Family History Mother Hypertension Depression Bipolar disorder Father Hypertension Sister Bipolar disorder Daughter Bipolar disorder Social History Smoking and tobacco status: former smoker Alcohol intake: never Lives independently: Yes Physical Exam Const: COMMON NORMALS: patient oriented x3 and alert HENMT: COMMON NORMALS: normocephalic and atraumatic HEAD & SCALP: normocephalic and atraumatic Neck/C-Spine: COMMON NORMALS: no meningeal signs and no JVD Resp: EFFORT & INSPECTION: Yes respiratory distress Cardio: COMMON NORMALS: no JVD, regular rate and regular rhythm RATE: regular rate RHYTHM: regular rhythm GI: COMMON NORMALS: Normal to inspection, nondistended, normoactive bowel sounds present Extremity: COMMON NORMALS: normal to inspection and full ROM Neuro: COMMON NORMALS: patient oriented x3 SENSORIUM/ORIENTATION: Yes alert MENINGEAL SIGNS: Yes no meningeal signs Skin: COMMON NORMALS: no rashes or lesions noted, no jaundice and no mottling GENERAL SKIN EXAM: no rashes or lesions noted Course Vital Signs: Vital signs: Vital Signs Temperature 98.6 F 02/14/20 14:30 Pulse Rate 95 02/14/20 15:38 Respiratory Rate 15 02/14/20 15:38 Blood Pressure 160/104 02/14/20 15:38 Pulse Oximetry 94 02/14/20 15:38 MDM - SOB/Dyspnea Lab Data: Labs: Lab Results 02/14/20 02/14/20 02/14/20 Range/Units 14:39 14:50 14:54 WBC 12.5 H (4.0-10.0) 10^3/ uL RBC 5.02 (4.1-5.3) 10^6/u L Hgb 14.1 (11.5-15.3) g/dL Hct 46.0 (37.0-47.0) % MCV 91.6 (81-99) fL MCH 28.1 (28.0-34.0) pg MCHC 30.7 (30.0-36.0) g/dL RDW 20.4 H (12.1-15.1) % Plt Count 381 (130-400) 10^3/c mm MPV 9.7 (7.4-10.4) fL Neut % (Auto) 89.5 % Lymph % (Auto) 7.7 % [place] % (Auto) 2.2 % Eos % (Auto) 0.0 % Baso % (Auto) 0.3 % Neut # (Auto) 11.2 H (1.8-7.7) 10^3/u L Lymph # (Auto) 1.0 (0.8-4.8) 10^3/u L [place] # (Auto) 0.3 (0.2-0.9) 10^3/u L Eos # (Auto) 0.0 (0.0-0.8) 10^3/u L Baso # (Auto) 0.0 (0.0-0.1) 10^3/u L Nucleated RBC % (a uto) 0 % Nucleated RBCs # 0.0 /100WBC Sodium 139 (136-145) mmol/L Potassium 4.5 (3.5-5.1) mmol/L Chloride 101 (98-107) mmol/L Carbon Dioxide 24 (22-29) mmol/L Anion Gap 18.5 (5-19) BUN 12 (8-23) mg/dL Creatinine 0.7 (0.5-0.9) mg/dL GFR Calculation 83.7 L (90-130) mL/min Glucose 175 H (65-115) mg/dL Calculated Osmolal ity 288 (285-295) mOsm/k g Lactic Acid 1.1 (0.5-2.2) mmol/L Calcium 9.1 (8.5-10.5) mg/dL Total Bilirubin 1.0 (0.15-1.2) mg/dL AST 17 (0-32) U/L ALT 12 (0-33) U/L Alkaline Phosphata se 102 (35-105) IU/L Troponin T Baselin e (0-10) ng/mL Troponin T 120 Min kashia (0-10) ng/mL Delta Troponin T (0-10) ABS# NT-Pro-B Natriuret Pep 3005 H (0-125) pg/mL Total Protein 7.5 (6.6-8.7) g/dL Albumin 4.2 (3.5-5.2) g/dL Globulin 3.3 (1.3-4.6) g/dL 02/14/20 02/14/20 Range/Units 14:54 16:44 WBC (4.0-10.0) 10^3/ uL RBC (4.1-5.3) 10^6/u L Hgb (11.5-15.3) g/dL Hct (37.0-47.0) % MCV (81-99) fL MCH (28.0-34.0) pg MCHC (30.0-36.0) g/dL RDW (12.1-15.1) % Plt Count (130-400) 10^3/c mm MPV (7.4-10.4) fL Neut % (Auto) % Lymph % (Auto) % [place] % (Auto) % Eos % (Auto) % Baso % (Auto) % Neut # (Auto) (1.8-7.7) 10^3/u L Lymph # (Auto) (0.8-4.8) 10^3/u L [place] # (Auto) (0.2-0.9) 10^3/u L Eos # (Auto) (0.0-0.8) 10^3/u L Baso # (Auto) (0.0-0.1) 10^3/u L Nucleated RBC % (a uto) % Nucleated RBCs # /100WBC Sodium (136-145) mmol/L Potassium (3.5-5.1) mmol/L Chloride (98-107) mmol/L Carbon Dioxide (22-29) mmol/L Anion Gap (5-19) BUN (8-23) mg/dL Creatinine (0.5-0.9) mg/dL GFR Calculation (90-130) mL/min Glucose (65-115) mg/dL Calculated Osmolal ity (285-295) mOsm/k g Lactic Acid (0.5-2.2) mmol/L Calcium (8.5-10.5) mg/dL Total Bilirubin (0.15-1.2) mg/dL AST (0-32) U/L ALT (0-33) U/L Alkaline Phosphata se (35-105) IU/L Troponin T Baselin e 21 H (0-10) ng/mL Troponin T 120 Min kashia 23.41 H (0-10) ng/mL Delta Troponin T 2.41 (0-10) ABS# NT-Pro-B Natriuret Pep (0-125) pg/mL Total Protein (6.6-8.7) g/dL Albumin (3.5-5.2) g/dL Globulin (1.3-4.6) g/dL Discharge Plan Discharge Patient Disposition: Admitted As Inpatient Clinical Impression: Chronic dyspnea Atrial fibrillation Qualifiers: Atrial fibrillation type: unspecified Qualified Code(s): I48.91 - Unspecified atrial fibrillation Congestive heart failure Qualifiers: Heart failure type: unspecified Heart failure chronicity: unspecified Qualified Code(s): I50.9 - Heart failure, unspecified Condition: Fair Referrals: Carolyn Cesar DO [Primary Care Provider] - Verona Reynolds NP [Family Provider] - Coding Level of Care Code ED Director Human Services for [facility] Fwd Exam Comprehensive
--- NOTE | 2020-02-14 14:37 | ECG_ITS ---
Measurements Intervals [place] Rate: 120 P: CO: 0 QRS: 59 QRSD: 100 T: 42 QT: 322 QTc: 455 ATRIAL FIBRILLATION WITH RAPID VENTRICULAR RESPONSE MODERATE ST DEPRESSION [0.05+ mV ST DEPRESSION] Compared to ECG 01/17/2020 21:40:20 ST (T wave) deviation now present T-wave abnormality no longer present Electronically Signed On 02-14-2020 21:56:43 CDT by Vandana Katz M.D. [id number]
[2020-02-14] MEDS: ipratropium-albuterol 3 mL Neb INHALATION (14:42)
[2020-02-14 15:03] LABS: Basophils % 0.3 %; Hemoglobin 14.1 g/dL (11.5-15.3); Lymphocytes % 7.7 %; Mean Corpuscular HGB Conc 30.7 g/dL (30.0-36.0); Mean Corpuscular Hemoglobin 28.1 pg (28.0-34.0); Mean Corpuscular Volume 91.6 fL (81-99); Mean Platelet Volume 9.7 fL (7.4-10.4); Monocytes # 0.3 10^3/uL (0.2-0.9); Monocytes % 2.2 %; Neutrophils # 11.2 10^3/uL (1.8-7.7); Neutrophils % 89.5 %; Nucleated Red Blood Cells % 0 %; Platelet Count 381 10^3/cmm (130-400); Red Blood Count 5.02 10^6/uL (4.1-5.3); Red Cell Distribution Width 20.4 % (12.1-15.1); White Blood Count 12.5 10^3/uL (4.0-10.0)
[2020-02-14] MEDS: sodium chloride 0.9% 1,000 ML 999 ML IV (15:05)
[2020-02-14] MEDS: morphine 4 mg/mL SDV 1 mL IVP (15:07)
[2020-02-14] MEDS: ondansetron 2 mg/ML SDV 2 mL 4 MG IVP ×2 (15:07→18:48)
[2020-02-14 15:14] LABS: Lactic Sepsis W/Reflex 1.1 mmol/L (0.5-2.2)
[2020-02-14 15:17] LABS: Troponin(5th) Baseline 21 ng/mL (0-10)
[2020-02-14 15:26] LABS: Alanine Aminotransferase 12 U/L (0-33); Albumin Level 4.2 g/dL (3.5-5.2); Alkaline Phosphatase 102 IU/L (35-105); Anion Gap 18.5 (5-19); Aspartate Amino Transferase 17 U/L (0-32); Blood Urea Nitrogen 12 mg/dL (8-23); Calcium 9.1 mg/dL (8.5-10.5); Carbon Dioxide 24 mmol/L (22-29); Chloride 101 mmol/L (98-107); Creatinine Clr Calc Pharmacy 88.3029; Globulin 3.3 g/dL (1.3-4.6); Glomerular Filtration Rate 83.7 mL/min (90-130); Glucose 175 mg/dL (65-115); NT Pro B Type Natriuretic Pept 3005 pg/mL (0-125); Osmolality Calculated 288 mOsm/kg (285-295); Potassium 4.5 mmol/L (3.5-5.1); Sodium 139 mmol/L (136-145); Total Protein 7.5 g/dL (6.6-8.7)
[2020-02-14 17:05] LABS: Troponin 5 2HR 23.41 ng/mL (0-10); Troponin 5 2HR Delta 2.41 ABS# (0-10)
--- NOTE | 2020-02-14 17:38 | PM.HP ---
Providers/Chief Complaint Primary Care Provider: Carolyn Cesar DO Chief Complaint: resp distress History of Present Illness Kenia Caon is a 65 year old female who reports that she woke up with shortness of breath, and palpitations. She believes this was around 3 AM this morning. She noted her heart rate was significantly elevated along with her blood pressure. She took her regular medication this morning and it has not made an impact on her elevated heart rate. She also reports she has had some nausea, dry heaves, and some loose stool. She states it hurts a little bit in her epigastric area secondary to her dry heaving. She reports her chest always hurts and it is no different than usual. She reports she is short of breath but it is better than when she came in to the emergency department. She reports she is chronically on 3 L of oxygen. She denies any significant cough, or fever. She reports no blood in her stools, no hematemesis, no black or tarry bowel movements. She was recently treated for urinary tract infection, a little less than a month ago. According to clinic notes she has quite a bit of variability in her blood pressure. In the emergency department she has been placed on a Cardizem drip, and the emergency department physician is in the process of giving her some IV Lasix. Review of Systems General: Reports: 10 or more systems reviewed and unremarkable except in HPI and below Const: Reports: fatigue; Denies: fever(s) Eyes: Denies: change in vision ENMT: Denies: throat pain Card: Reports: chest pain, palpitations, irregular heart rhythm and edema (She reports her edema is better than usual.) Resp: Reports: dyspnea; Denies: productive cough or non-productive cough GI: Reports: abdominal pain, nausea and diarrhea : Denies: flank pain Musc: Denies: neck pain Skin/Breast: Denies: rash Neuro: Denies: headache(s) Psych: Denies: anxiety Endo: Denies: polyuria Amor/Lymph: Denies: easy bruising All/Imm: Denies: urticaria Medications/Allergies Home Medications Medication Instructions Recorded Confirmed Last Taken Type albuterol sulfate 2.5 mg INHALATION BID PRN ml 10/05/19 02/14/20 02/13/20 History aspirin 81 mg tablet,delayed 81 mg PO DAILY tab 10/05/19 02/14/20 02/14/20 History release cholecalciferol (vitamin D3) 25 2,000 unit PO DAILY cap 10/05/19 02/14/20 02/14/20 History mcg (1,000 unit) capsule fluticasone propionate 50 2 spray INTRANASAL DAILY ml 10/05/19 02/14/20 Unknown History mcg/actuation nasal spray,suspension hydrocodone 10 mg-acetaminophen 1 tab PO Q6H PRN 10/05/19 02/14/20 02/14/20 History 325 mg tablet ipratropium 20 mcg-albuterol 100 2 puff INHALATION QID gm 10/05/19 02/14/20 Unknown History mcg/actuation mist for inhalation loperamide 2 mg capsule 2 mg PO DIRECTED PRN cap 10/05/19 02/14/20 02/14/20 History multivitamin 1 tab PO DAILY tab 10/05/19 02/14/20 02/14/20 History rivaroxaban 10 mg tablet 10 mg PO DAILY tab 10/05/19 02/14/20 02/14/20 History tizanidine 4 mg capsule 8 mg PO TID PRN cap 10/05/19 02/14/20 02/14/20 History morphine 30 mg capsule,extended 30 mg PO BID cap 11/07/19 02/14/20 02/14/20 History release 24 hr multiphase fluoxetine 40 mg capsule 40 mg PO DAILY #90 cap 12/09/19 02/14/20 02/14/20 Rx omeprazole 20 mg capsule,delayed 20 mg PO BID #90 cap 12/09/19 02/14/20 02/14/20 Rx release ferrous sulfate 325 mg (65 mg 325 mg PO DAILY #30 tab 12/12/19 02/14/20 Unknown Rx iron) tablet blood sugar diagnostic #100 each 12/13/19 02/14/20 Unknown Rx blood-glucose meter #1 each 12/13/19 02/14/20 Unknown Rx lancets #200 each 12/13/19 02/14/20 Unknown Rx gabapentin 300 mg PO BID #0 cap 01/18/20 02/14/20 02/14/20 Rx atorvastatin 20 mg tablet 20 mg PO DAILY #30 tab 01/24/20 02/14/20 02/14/20 Rx potassium chloride 10 mEq 10 meq PO BID #60 tab 01/24/20 02/14/20 02/14/20 Rx tablet,extended release amlodipine 2.5 mg tablet 2.5 mg PO DAILY #30 tab 01/26/20 02/14/20 02/13/20 Rx furosemide 20 mg tablet 20 mg PO DAILY tab 01/26/20 02/14/20 02/14/20 History isosorbide mononitrate 30 mg 30 mg PO DAILY #30 tab 01/26/20 02/14/20 02/13/20 Rx tablet,extended release 24 hr metoprolol tartrate 25 mg tablet 25 mg PO .1.5 TAB AM, 1 TAB PM #75 01/26/20 02/14/20 02/14/20 Rx tab Allergies Allergy/AdvReac Type Severity Reaction Status Date / Time clindamycin Allergy Unknown Unknown Verified 02/14/20 14:37 duloxetine [From Cymbalta] Allergy Unknown Unknown Verified 02/14/20 14:37 lanolin Allergy Unknown Unknown Verified 02/14/20 14:37 Sulfa (Sulfonamide Allergy Unknown Unknown Verified 02/14/20 14:37 Antibiotics) venlafaxine Allergy Unknown Unknown Verified 02/14/20 14:37 PFSH Acute PFSH: Medical History Arthritis Atrial fibrillation Benign essential HTN Benign tumor of esophagus Bipolar disorder COPD (chronic obstructive pulmonary disease) DDD (degenerative disc disease) Diastolic heart failure Fibromyalgia GERD (gastroesophageal reflux disease) History of pleural effusion History of pulmonary embolism Hypotension Hypothyroidism Mitral regurgitation YUSRA (obstructive sleep apnea) Peripheral edema Polypharmacy PUD (peptic ulcer disease) Pulmonary HTN Spinal stenosis Surgical History S/P hysterectomy S/P thoracentesis S/P tubal ligation Family History Mother Hypertension Depression Bipolar disorder Father Hypertension Sister Bipolar disorder Daughter Bipolar disorder Social History Smoking and tobacco status: former smoker Alcohol intake: never Lives independently: Yes Vitals/I&O/Wt Last Vital Signs Temp 98.6 F 02/14/20 14:30 Pulse 95 02/14/20 15:38 Resp 15 02/14/20 15:38 BP 160/104 05/26/20 15:38 Pulse Ox 94 02/14/20 15:38 Weight last 48 hrs Weight 127.006 kg Physical Exam Narrative: EXAM NARRATIVE: General exam demonstrates a white female, in mild respiratory distress, reporting some nausea. Blood pressure is noted to be elevated HEENT: Pupils equally round. Oropharynx clear. Neck is supple no lymphadenopathy or thyromegaly Cardiovascular irregular, irregular with accelerated rate Lungs demonstrate no wheezing. Diminished breath sounds are noted bilaterally Abdomen is soft. Slight epigastric tenderness is noted to palpation. No obvious organomegaly. Obese. Extremities trace bilateral edema Skin without rash Neuro no focal deficits Data : 02/14/20 14:39 02/14/20 14:54 Micro: Microbiology 02/14/20 14:50 Blood Culture - Preliminary Blood SPECIMEN COLLECTED 02/14/20 14:54 Blood Culture - Preliminary Blood SPECIMEN COLLECTED Other data: Chest x-ray demonstrates COPD, some pulmonary vascular congestion. EKG demonstrates atrial fibrillation, rate of 97, normal axis, nonspecific ST-T wave changes Recent carotid Doppler demonstrates no flow-limiting plaques Recent echocardiogram in November demonstrates mild biatrial enlargement, normal RV size and function, EF of 65%, mild pulmonary hypertension Liver function tests are normal Troponin is elevated but with no significant delta. BNP is 3000 A&P Assessment and plan (1) Atrial fibrillation: Admission to ICU. Continue Cardizem Reinitiate the patient's metoprolol, 37.5 mg twice daily Continue Xarelto Check TSH Status: Acute Qualifiers: Atrial fibrillation type: unspecified Qualified Code(s): I48.91 - Unspecified atrial fibrillation (2) Diarrhea: Check C. difficile toxin Secondary to association with abdominal pain and vomiting check lipase, CT scan Status: Acute (3) Vomiting: See above. Placed on Protonix Zofran as needed Check urinalysis Check lipase Clear liquid diet if tolerated Status: Acute (4) Hypertension: Concern of hypertensive urgency exists. Nitroglycerin ointment Metoprolol as noted Cardizem as noted currently Hydralazine as needed Status: Acute (5) Elevated troponin: Trend. Suspect type II Status: Acute (6) Congestive heart failure: Lasix given in the emergency department. Will reassess tomorrow morning whether further doses are needed This appears to be acute diastolic heart failure, likely generated by her atrial fibrillation with rapid ventricular rate COVID testing has been performed by the emergency department for her respiratory distress associated with her congestive heart failure. Will await results. Appropriate isolation until this occurs. Status: Acute Qualifiers: Heart failure chronicity: unspecified Heart failure type: unspecified Qualified Code(s): I50.9 - Heart failure, unspecified Additional A&P Information COPD, no evidence of exacerbation. Nebs as needed Bipolar disorder Chronic pain. Will attempt to continue her chronic narcotics. If she should have significant nausea and vomiting will have as needed IV morphine. Xarelto will serve for DVT prophylaxis Full code Attestations Medical Necessity Statement*: Will need greater than 2 midnight stay for evaluation and treatment of atrial fibrillation with rapid ventricular rate and concern of hypertensive urgency. Time Spent in Patient Care: Greater than 35 minutes 41 minutes spent in critical care time assessing this patient with atrial fibrillation with rapid ventricular rate with marked elevation in blood pressure with multiple other symptomatology including vomiting and diarrhea, chest pain, COPD, etc. 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
--- NOTE | 2020-02-14 17:54 | CTR_ITS ---
PROCEDURE INFORMATION: Exam: CT Abdomen And Pelvis With Contrast Exam date and time: 02/14/2020 6:01 PM Age: 65 years old Clinical indication: Nausea and vomiting and other: Diarrhea; Abdominal pain; Localized; Lower; Prior surgery; Surgery type: Tubal TECHNIQUE: Imaging protocol: Computed tomography of the abdomen and pelvis with intravenous contrast. Radiation optimization: All CT scans at this facility use at least one of these dose optimization techniques: automated exposure control; mA and/or kV adjustment per patient size (includes targeted exams where dose is matched to clinical indication); or iterative reconstruction. Contrast material: OMNI 300; Contrast volume: 95 ml; Contrast route: IV; COMPARISON: CT abdomen pelvis w con* [id number] 11/27/2016 10:59 AM RADIATION DOSE METRICS: Total DLP: 1864.76 mGy-cm FINDINGS: Heart: Mild cardiomegaly. Findings consistent with low-grade interstitial edema of congestive heart failure. Scant pleural effusions. Bibasilar interseptal and interlobular thickening. Probable component of mild COPD/chronic bronchitis. Pleural space: Rare calcified pleural plaque. Liver: Stable small simple left hepatic lobe cyst since 11/27/2016. Liver otherwise unremarkable. Gallbladder and bile ducts: Gallbladder unremarkable. No visible cholelithiasis. No visible intra or extrahepatic biliary ectasia. Pancreas: Pancreas unremarkable. No visible pancreatic ductal ectasia. Spleen: Calcified splenic granulomas. Spleen otherwise are unremarkable. Adrenals: Adrenal glands unremarkable. Kidneys and ureters: Kidneys unremarkable. Stable tiny angiomyolipoma equator left kidney. No hydronephrosis or perinephric fluid. Stomach and bowel: Diverticulosis coli, primarily the sigmoid colon, without visible evidence of active diverticulitis. Nonobstructive bowel pattern. No visible adynamic or reactive ileus. Appendix: No evidence of appendicitis. Intraperitoneal space: Unremarkable. No free air. No significant fluid collection. Vasculature: The abdominal aorta is nonaneurysmal. Moderate arterial sclerotic disease. Lymph nodes: Unremarkable. No enlarged lymph nodes. Bladder: Urinary bladder unremarkable. No visible filling defect. Reproductive: Status post hysterectomy. Bones/joints: Advanced degenerative disease and degenerative disc disease of the spine with spondylosis deformans. Vacuum disc phenomenon L1 through L4/L5. Facet arthrosis. Osteopenia. Soft tissues: Marked obesity results in increased quantum mottle artifact which degrades image quality in detail assessment. CT/CT abdomen pelvis w con* [id number] IMPRESSION: 1. No visible definitive evidence of acute abdominal or pelvic pathologic process. 2. Limited assessment lung bases suggest the presence of low-grade, potentially passive, interstitial edema of congestive heart failure. Radiation Dose CTDIVOL = (mGy): DLP = 1864.76 (mGy-cm)
[2020-02-14] MEDS: FUROsemide 10 mg/mL SDV 10mL 80 MG IVP (18:12)
[2020-02-14] MEDS: nitroglycerin 1 gm/inch oint Pkt 1 INCH TOPICAL (18:12)
[2020-02-14] MEDS: iohexol 300 mg/mL 100 mL Btl IV (18:18)
--- NOTE | 2020-02-14 20:37 | ECG_ITS ---
Measurements Intervals [place] Rate: 97 P: NC: 0 QRS: 57 QRSD: 96 T: 54 QT: 372 QTc: [address] DEPRESSION [0.025+ mV ST DEPRESSION] ABNORMAL RHYTHM ECG Compared to ECG 01/17/2020 21:40:20 ST (T wave) deviation now present T-wave abnormality no longer present Electronically Signed On 02-15-2020 11:53:36 CDT by Vandana Katz M.D. [id number]
[2020-02-14] MEDS: tizanidine 4 mg Tablet 8 MG PO (20:49)
[2020-02-14] MEDS: pantoprazole 40 mg SDV IVP (20:49)
[2020-02-14] MEDS: morphine ER (12 HR) 30 mg tablet PO (20:50)
[2020-02-14] MEDS: gabapentin 300 mg Capsule PO (20:50)
[2020-02-14] MEDS: metoclopramide 5 mg/mL SDV 2 mL 10 MG IVP (20:51)
[2020-02-14] MEDS: hyDRALAzine 20 mg/mL INJ 1 mL 10 MG IVP (21:09)
[2020-02-14 21:43] LABS: Lactic Acid level (Lactate) 2.1 mmol/L (0.5-2.2); Troponin 5 6HR 34.91 ng/mL (0-10)
[2020-02-14 21:53] LABS: Thyroid Stimulating Hormone 0.46 uIU/mL (0.27-4.20)
[2020-02-14 21:56] LABS: Bilirubin Urine Neg (NEGATIVE); Blood Urine 3+ (Negative); Glucose Urine UA Norm (Normal); Ketones Urine Negative (Negative); Leukocyte Esterase Urine Negative (Negative); Nitrate Urine Negative (Negative); Protein Urine Neg (Negative); Urine Appearance Clear (CLEAR); Urine Color Yellow (Yellow); Urobilinogen Urine Norm (Negative); pH Urine 5 (5-7)
[2020-02-14 21:59] LABS: Add Urine Culture? Yes; Bacteria Urine TRACE; RBC Urine 15-25 /hpf (0-2); Renal Epithelial Cells Urine N /hpf
[2020-02-14 22:02] LABS: Troponin 5 6HR Delta 13.91 ng/L (0-12)
--- NOTE | 2020-02-14 22:06 | PC.NURSE ---
Patient received from ER to ICU #9 at 2014. Patient complaining of SOB upon arrival to ICU. Cardizem drip not infusing. Dr Up updated and orders received to resume cardizem drip for HR control. Patient continued to complain of nausea so Dr Up updated, orders received for reglan 10mg IV q6h PRN to alternate with zofran. Patient's BP remained elevated, PRN hydralazine given per NOV. Patient requesting tizanidine for muscle spasms, ranking pain as 7-8/10. Evening meds given per NOV. VS documented per clinical record. Critical lab received at 2204, Dr Up updated. No new orders received, physician states that we should continue to monitor patient's HR and BP at this time. Patient resting comfortably, will continue to monitor.
[2020-02-15] VITALS (22 sets, daily range): BP systolic 70–168; BP diastolic 37–129; PULSE 72–124; RESP 13–27; TEMP 36.5–37; O2SAT 92–98
[2020-02-15 03:56] LABS: Basophils % 0.3 %; Hematocrit 41.6 % (37.0-47.0); Hemoglobin 12.7 g/dL (11.5-15.3); Lymphocytes # 1.2 10^3/uL (0.8-4.8); Lymphocytes % 9.2 %; Mean Corpuscular HGB Conc 30.5 g/dL (30.0-36.0); Mean Corpuscular Hemoglobin 28.7 pg (28.0-34.0); Mean Corpuscular Volume 94.1 fL (81-99); Mean Platelet Volume 9.9 fL (7.4-10.4); Monocytes # 0.8 10^3/uL (0.2-0.9); Monocytes % 6.2 %; Neutrophils # 10.7 10^3/uL (1.8-7.7); Neutrophils % 83.8 %; Nucleated Red Blood Cells % 0 %; Platelet Count 311 10^3/cmm (130-400); Red Blood Count 4.42 10^6/uL (4.1-5.3); Red Cell Distribution Width 21.1 % (12.1-15.1); White Blood Count 12.8 10^3/uL (4.0-10.0)
[2020-02-15 04:16] LABS: Alanine Aminotransferase 10 U/L (0-33); Albumin Level 3.8 g/dL (3.5-5.2); Alkaline Phosphatase 86 IU/L (35-105); Anion Gap 17.6 (5-19); Aspartate Amino Transferase 15 U/L (0-32); Blood Urea Nitrogen 14 mg/dL (8-23); Calcium 10.2 mg/dL (8.5-10.5); Carbon Dioxide 25 mmol/L (22-29); Chloride 102 mmol/L (98-107); Globulin 3.1 g/dL (1.3-4.6); Glomerular Filtration Rate 55.5 mL/min (90-130); Glucose 144 mg/dL (65-115); Osmolality Calculated 291 mOsm/kg (285-295); Potassium 3.6 mmol/L (3.5-5.1); Sodium 141 mmol/L (136-145); Total Bilirubin 0.9 mg/dL (0.15-1.2); Total Protein 6.9 g/dL (6.6-8.7)
[2020-02-15] MEDS: nitroglycerin 1 gm/inch oint Pkt 1 INCH TOPICAL (05:21)
[2020-02-15] MEDS: atorvastatin 40 mg Tablet 20 MG PO (08:21)
[2020-02-15] MEDS: pantoprazole 40 mg SDV IVP ×2 (08:21→20:02)
[2020-02-15] MEDS: fluoxetine 20 mg Capsule 40 MG PO (08:22)
[2020-02-15] MEDS: morphine ER (12 HR) 30 mg tablet PO ×2 (08:22→20:01)
[2020-02-15] MEDS: rivaroxaban 10 mg Tablet PO (08:22)
[2020-02-15] MEDS: gabapentin 300 mg Capsule PO ×2 (08:22→18:11)
[2020-02-15] MEDS: aspirin 81 mg EC Tablet PO (08:22)
[2020-02-15] MEDS: ondansetron 2 mg/ML SDV 2 mL 4 MG IVP (08:23)
--- NOTE | 2020-02-15 08:26 | PM.PN ---
Subjective Subjective: Interval history: Kenia reports she feels nauseated this morning. When I walked in her heart rate was 130. From my understanding her Cardizem drip was turned off this morning. Medications: Reviewed: Yes Vitals/I&O/Wt Last Vital Signs Temp 98.4 F 02/15/20 04:00 Pulse 104 H 02/15/20 06:00 Resp 20 H 02/15/20 06:00 BP 131/83 02/15/20 06:00 Pulse Ox 97 02/15/20 06:00 02/14/20 02/15/20 02/15/20 22:59 06:59 14:59 Intake Total 63.166 / 63.166 50 / 113.166 Output Total 350 / 350 300 / 650 Balance -286.834 / -286.834 -250 / -536.834 Weight last 48 hrs Weight 127.006 kg Physical Exam Narrative: EXAM NARRATIVE: General exam is a white female, with some nausea Cardiovascular irregular, irregular with accelerated rate Lungs diminished breath sounds bilaterally but no significant wheezing this morning Abdomen is soft with positive bowel sounds Extremities no cyanosis clubbing or edema Data : 02/15/20 03:15 02/15/20 03:15 Micro: Microbiology 02/14/20 14:50 Blood Culture - Preliminary Blood SPECIMEN COLLECTED 02/14/20 14:54 Blood Culture - Preliminary Blood SPECIMEN COLLECTED A&P Assessment and plan (1) Atrial fibrillation: Cardizem restarted We will increase patient's home metoprolol to 50 mg twice daily. First dose now Taper off Cardizem as tolerated Continue Xarelto TSH was checked and normal. Status: Acute Qualifiers: Atrial fibrillation type: unspecified Qualified Code(s): I48.91 - Unspecified atrial fibrillation (2) Diarrhea: Awaiting C. difficile. CT scan negative for acute pathology I had intended to order a lipase yesterday. Check this on blood in lab. Status: Acute (3) Vomiting: Continue Protonix Zofran as needed Urinalysis checked. No acute pathology. Status: Acute (4) Hypertension: Blood pressure is improved. Change nitroglycerin ointment back to patient's home Imdur Increase metoprolol as noted above Hydralazine as needed Status: Acute (5) Elevated troponin: Elevated, suspect type II. Consider outpatient nuclear stress test. Previous angiogram 2012 normal. Status: Acute (6) Congestive heart failure: Lasix given in the emergency department. Will reassess tomorrow morning whether further doses are needed This appears to be acute diastolic heart failure, likely generated by her atrial fibrillation with rapid ventricular rate COVID testing has been performed by the emergency department for her respiratory distress associated with her congestive heart failure. Hold further Lasix. Reassess through the day. Status: Acute Qualifiers: Heart failure chronicity: unspecified Heart failure type: unspecified Qualified Code(s): I50.9 - Heart failure, unspecified Additional A&P Information COPD, possible mild exacerbation. Continue breathing treatments. Doxycycline added today. Bipolar disorder Chronic pain. Will attempt to continue her chronic narcotics. Xarelto will serve for DVT prophylaxis Full code Attestations Medical Necessity Statement*: Needs continued hospital stay for control of atrial fibrillation with rapid ventricular rate. 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
[2020-02-15 08:56] LABS: Lipase 16 U/L (13-60)
[2020-02-15] MEDS: doxycycline 100 mg Tablet PO ×2 (09:43→18:11)
[2020-02-15] MEDS: metoprolol tartrate 50 mg Tablet PO ×2 (09:43→18:11)
[2020-02-15] MEDS: isosorbide mononitrate ER 30 mg Tablet PO (09:43)
[2020-02-15] MEDS: metoclopramide 5 mg/mL SDV 2 mL 10 MG IVP (09:43)
[2020-02-15] MEDS: HYDROcodone-acetaminophen 10-325 mg Tablet 1 TAB PO (11:54)
[2020-02-15 15:14] LABS: Coronavirus Lab Test PTC NOT DETECTED
[2020-02-16] VITALS (19 sets, daily range): BP systolic 80–173; BP diastolic 57–107; PULSE 71–113; RESP 13–28; TEMP 36.6–37.2; O2SAT 94–98
[2020-02-16] MEDS: HYDROcodone-acetaminophen 5-325 mg Tablet 1 TAB PO ×4 (02:47→20:19)
[2020-02-16 03:37] LABS: Basophils # 0.1 10^3/uL (0.0-0.1); Basophils % 0.7 %; Eosinophils # 0.1 10^3/uL (0.0-0.8); Eosinophils % 0.7 %; Hematocrit 41.6 % (37.0-47.0); Hemoglobin 12.4 g/dL (11.5-15.3); Lymphocytes # 2.8 10^3/uL (0.8-4.8); Lymphocytes % 25.9 %; Mean Corpuscular HGB Conc 29.8 g/dL (30.0-36.0); Mean Corpuscular Hemoglobin 28.8 pg (28.0-34.0); Mean Corpuscular Volume 96.7 fL (81-99); Mean Platelet Volume 9.9 fL (7.4-10.4); Monocytes # 1.1 10^3/uL (0.2-0.9); Monocytes % 10.1 %; Neutrophils # 6.7 10^3/uL (1.8-7.7); Neutrophils % 62.3 %; Nucleated Red Blood Cells % 0 %; Platelet Count 286 10^3/cmm (130-400); Red Cell Distribution Width 21.1 % (12.1-15.1); White Blood Count 10.7 10^3/uL (4.0-10.0)
[2020-02-16 03:59] LABS: Alanine Aminotransferase 10 U/L (0-33); Albumin Level 3.8 g/dL (3.5-5.2); Alkaline Phosphatase 78 IU/L (35-105); Anion Gap 15.6 (5-19); Aspartate Amino Transferase 14 U/L (0-32); Blood Urea Nitrogen 15 mg/dL (8-23); Calcium 10.4 mg/dL (8.5-10.5); Carbon Dioxide 27 mmol/L (22-29); Chloride 102 mmol/L (98-107); Glomerular Filtration Rate 49.7 mL/min (90-130); Glucose 115 mg/dL (65-115); Osmolality Calculated 289 mOsm/kg (285-295); Potassium 3.6 mmol/L (3.5-5.1); Sodium 141 mmol/L (136-145); Total Protein 6.8 g/dL (6.6-8.7)
[2020-02-16] MEDS: hyDRALAzine 20 mg/mL INJ 1 mL 10 MG IVP (04:09)
[2020-02-16] MEDS: metoprolol tartrate 50 mg Tablet PO ×2 (05:28→20:08)
[2020-02-16] MEDS: acetaminophen 325 mg Tablet 650 MG PO (05:28)
[2020-02-16] MEDS: tizanidine 4 mg Tablet 8 MG PO (06:22)
--- NOTE | 2020-02-16 07:35 | P.PN_ITS ---
Subjective Subjective: Interval history: Kenia reports she is doing fine now. She feels hungry. She denies any chest discomfort. She had an episode of a very elevated blood pressure this morning associated with some nausea. This seemed to resolve after getting muscle relaxant. Muscle relaxant was ordered as needed as she has at home, but apparently she takes a schedule III times a day. Cardiology has had quite an issue dealing with her variance of blood pressures from high to low at home as well. Medications: Reviewed: Yes Vitals/I&O/Wt Last Vital Signs Temp 98 F 02/16/20 04:00 Pulse 113 H 02/16/20 06:00 Resp 28 H 02/16/20 06:00 BP 159/107 02/16/20 06:00 Pulse Ox 95 02/16/20 06:00 02/15/20 02/16/20 02/16/20 22:59 06:59 14:59 Intake Total 320 / 870 180 / 1050 Output Total 400 / 850 325 / 1175 Balance -80 / 20 -145 / -125 Weight last 48 hrs Weight 127.006 kg Physical Exam Narrative: EXAM NARRATIVE: General exam is a white female, no complaints. Reports her shortness of breath is back at baseline Cardiovascular irregular, irregular with accelerated rate Lungs diminished breath sounds bilaterally but no significant wheezing this morning Abdomen is soft with positive bowel sounds Extremities no cyanosis clubbing or edema Data : 02/16/20 03:25 02/16/20 03:25 Micro: Microbiology 02/14/20 14:50 Blood Culture - Preliminary Blood NEGATIVE TO DATE 02/14/20 14:54 Blood Culture - Preliminary Blood NEGATIVE TO DATE A&P Assessment and plan (1) Atrial fibrillation: Cardizem drip has since been discontinued Continue metoprolol 50 mg twice daily Continue Xarelto TSH was checked and normal. Status: Acute Qualifiers: Atrial fibrillation type: unspecified Qualified Code(s): I48.91 - Unspecified atrial fibrillation (2) Diarrhea: Awaiting C. difficile, but doubt significantly as patient is not having diarrhea in the hospital currently. CT scan negative for acute pathology Lipase was normal Status: Acute (3) Vomiting: Continue Protonix Zofran as needed Urinalysis checked. No obvious infection Status: Acute (4) Hypertension: Blood pressure has been quite variable. This seems to decrease significantly with pain medication or muscle relaxant At this point I will try to keep the metoprolol at the same dose to stabilize heart rate. Change muscle relaxant to scheduled but lower dose. Do the same with hydrocodone. Hopefully this will give us some more consistency to her blood pressures. Hydralazine as needed Status: Acute (5) Elevated troponin: Elevated, suspect type II. Consider outpatient nuclear stress test. Previous angiogram 2012 normal. Status: Acute (6) Congestive heart failure: Lasix given in the emergency department. This appears to be acute diastolic heart failure, likely generated by her atrial fibrillation with rapid ventricular rate COVID testing has been performed and negative No need for further Lasix. Heart failure is compensated currently. Status: Acute Qualifiers: Heart failure chronicity: unspecified Heart failure type: unspecified Qualified Code(s): I50.9 - Heart failure, unspecified Additional A&P Information COPD, possible mild exacerbation. Continue breathing treatments. Continue doxycycline Bipolar disorder Chronic pain. Will attempt to continue her chronic narcotics. Xarelto will serve for DVT prophylaxis Full code Transfer to cardiac stepdown unit No need for laboratory tomorrow Attestations Medical Necessity Statement*: Needs continued hospitalization for close monitoring of widely varying blood pressures, atrial fibrillation with rapid ventricular rate for adjustment of medication. 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
[2020-02-16] MEDS: pantoprazole 40 mg SDV IVP ×2 (08:52→20:20)
[2020-02-16] MEDS: atorvastatin 40 mg Tablet 20 MG PO (08:52)
[2020-02-16] MEDS: gabapentin 300 mg Capsule PO ×2 (08:52→20:08)
[2020-02-16] MEDS: aspirin 81 mg EC Tablet PO (08:52)
[2020-02-16] MEDS: tizanidine 4 mg Tablet PO ×3 (08:52→21:27)
[2020-02-16] MEDS: rivaroxaban 10 mg Tablet PO (08:52)
[2020-02-16] MEDS: fluoxetine 20 mg Capsule 40 MG PO (08:53)
[2020-02-16] MEDS: doxycycline 100 mg Tablet PO ×2 (08:53→20:08)
--- NOTE | 2020-02-16 18:00 | PC.NURSE ---
pt recieved from ICU via wheelchair. pt transferred to bed by herself. vitals stable. pt orientated to room, call light placed within reach and instructed on using it if she needed anything. will continue to monitor.
--- NOTE | 2020-02-16 18:04 | PC.NURSE ---
BEDSIDE REPORT GIVEN TO GLORY ON CSU. PT TO ROOM 105 WITH HER PHONE & OTHER BELONGINGS. WISHED WELL.
--- NOTE | 2020-02-16 18:21 | P.CONIM_ITS ---
Providers/Reason For Consult Consulting Physican/Specialty*: Cardiology Reason for Consult*: Atrial fibrillation Labile hypertension Decompensated heart failure Attending Physician: Justus Hernandez MD Primary Care Provider: Carolyn Cesar DO History of Present Illness History of Present Illness Kenia Cano is a 65 year old female past medical history significant for labile hypertension, difficult to control atrial fibrillation and diastolic heart failure was admitted with worsening of shortness of breath orthopnea lower extremity edema and atrial fibrillation with rapid ventricle response. She was also complaining of loose stools. Patient was given IV diuretics in the ER and started on Cardizem drip. Heart rate is now under control but blood pressure remains labile she has still shortness of breath with lower extremity edema. She admits to orthopnea whenever she lay down flat. She is still appear to be volume overloaded. Review of Systems General: Reports: 10 or more systems reviewed and unremarkable except in HPI and below Const: Reports: fatigue; Denies: fever(s) Eyes: Denies: change in vision ENMT: Denies: throat pain Card: Reports: chest pain, palpitations, irregular heart rhythm and edema (She reports her edema is better than usual.) Resp: Reports: dyspnea; Denies: productive cough or non-productive cough GI: Reports: abdominal pain, nausea and diarrhea : Denies: flank pain Musc: Denies: neck pain or joint warmth Skin/Breast: Denies: rash Neuro: Denies: headache(s) Psych: Denies: anxiety Endo: Denies: polyuria Amor/Lymph: Denies: easy bruising All/Imm: Denies: urticaria or acute wheezing Meds/Allergies Home Medications and Allergies Home Medications Medication Instructions Recorded Confirmed Last Taken Type albuterol sulfate 2.5 mg INHALATION BID PRN ml 10/05/19 02/14/20 02/13/20 History aspirin 81 mg tablet,delayed 81 mg PO DAILY tab 10/05/19 02/14/20 02/14/20 History release cholecalciferol (vitamin D3) 25 2,000 unit PO DAILY cap 10/05/19 02/14/20 02/14/20 History mcg (1,000 unit) capsule fluticasone propionate 50 2 spray INTRANASAL DAILY ml 10/05/19 02/14/20 Unknown History mcg/actuation nasal spray,suspension hydrocodone 10 mg-acetaminophen 1 tab PO Q6H PRN 10/05/19 02/14/20 02/14/20 History 325 mg tablet ipratropium 20 mcg-albuterol 100 2 puff INHALATION QID gm 10/05/19 02/14/20 Unknown History mcg/actuation mist for inhalation loperamide 2 mg capsule 2 mg PO DIRECTED PRN cap 10/05/19 02/14/20 02/14/20 History multivitamin 1 tab PO DAILY tab 10/05/19 02/14/20 02/14/20 History rivaroxaban 10 mg tablet 10 mg PO DAILY tab 10/05/19 02/14/20 02/14/20 History tizanidine 4 mg capsule 8 mg PO TID PRN cap 10/05/19 02/14/20 02/14/20 History morphine 30 mg capsule,extended 30 mg PO BID cap 11/07/19 02/14/20 02/14/20 History release 24 hr multiphase fluoxetine 40 mg capsule 40 mg PO DAILY #90 cap 12/09/19 02/14/20 02/14/20 Rx omeprazole 20 mg capsule,delayed 20 mg PO BID #90 cap 12/09/19 02/14/20 02/14/20 Rx release ferrous sulfate 325 mg (65 mg 325 mg PO DAILY #30 tab 12/12/19 02/14/20 Unknown Rx iron) tablet blood sugar diagnostic #100 each 12/13/19 02/14/20 Unknown Rx blood-glucose meter #1 each 12/13/19 02/14/20 Unknown Rx lancets #200 each 12/13/19 02/14/20 Unknown Rx gabapentin 300 mg PO BID #0 cap 01/18/20 02/14/20 02/14/20 Rx atorvastatin 20 mg tablet 20 mg PO DAILY #30 tab 01/24/20 02/14/20 02/14/20 Rx potassium chloride 10 mEq 10 meq PO BID #60 tab 01/24/20 02/14/20 02/14/20 Rx tablet,extended release amlodipine 2.5 mg tablet 2.5 mg PO DAILY #30 tab 01/26/20 02/14/20 02/13/20 Rx furosemide 20 mg tablet 20 mg PO DAILY tab 01/26/20 02/14/20 02/14/20 History isosorbide mononitrate 30 mg 30 mg PO DAILY #30 tab 01/26/20 02/14/20 02/13/20 Rx tablet,extended release 24 hr metoprolol tartrate 25 mg tablet 25 mg PO .1.5 TAB AM, 1 TAB PM #75 01/26/20 02/14/20 02/14/20 Rx tab Allergies Allergy/AdvReac Type Severity Reaction Status Date / Time clindamycin Allergy Unknown Unknown Verified 02/14/20 14:37 duloxetine [From Cymbalta] Allergy Unknown Unknown Verified 02/14/20 14:37 lanolin Allergy Unknown Unknown Verified 02/14/20 14:37 Sulfa (Sulfonamide Allergy Unknown Unknown Verified 02/14/20 14:37 Antibiotics) venlafaxine Allergy Unknown Unknown Verified 02/14/20 14:37 Current Medications Current Medications Generic Name Dose Route Start Last Admin Trade Name Freq PRN Reason Stop Dose Admin Acetaminophen 650 mg 02/14/20 20:16 02/16/20 05:28 Tylenol PO 650 mg Q6H PRN Administration Mild/Mod Pain Or Temp >/= 101 Hydrocodone Bitart/Acetaminophen 1 tab 02/16/20 09:00 02/16/20 15:12 Fieldon 5-325 Mg PO 1 tab TID GHAZAL Administration Albuterol/Ipratropium 1 puff 02/15/20 12:00 02/16/20 16:44 Combivent Respimat INHALATION 1 inhalation QID.RESPIRATORY GHAZAL Administration Aspirin 81 mg 02/15/20 09:00 02/16/20 08:52 Aspirin Ec PO 81 mg DAILY GHAZAL Administration Atorvastatin Calcium 20 mg 02/15/20 09:00 02/16/20 08:52 Lipitor PO 20 mg DAILY GHAZAL Administration Doxycycline Monohydrate 100 mg 02/15/20 09:00 02/16/20 08:53 Vibramycin PO 100 mg BID GHAZAL Administration Protocol Fluoxetine HCl 40 mg 02/15/20 09:00 02/16/20 08:53 Prozac PO 40 mg DAILY GHAZAL Administration Gabapentin 300 mg 02/14/20 20:16 02/16/20 08:52 Neurontin PO 300 mg BID GHAZAL Administration Hydralazine HCl 10 mg 02/14/20 20:16 02/16/20 04:09 Apresoline IVP 10 mg Q4H PRN Administration HYPERTENSION Metoclopramide HCl 10 mg 02/14/20 20:40 02/15/20 09:43 Reglan IVP 10 mg Q6H PRN Administration NAUSEA AND VOMITING Metoprolol Tartrate 50 mg 02/15/20 09:00 02/16/20 05:28 Lopressor PO 50 mg BID GHAZAL Administration Morphine Sulfate 30 mg 02/15/20 21:00 02/15/20 20:01 Ms Contin PO 30 mg BEDTIME GHAZAL Administration Ondansetron HCl 4 mg 02/14/20 20:16 02/15/20 08:23 Zofran IVP 4 mg Q6H PRN Administration vomiting, or N/V if npo Pantoprazole Sodium 40 mg 02/14/20 20:16 02/16/20 08:52 Protonix IVP 40 mg Q12H GHAZAL Administration Rivaroxaban 10 mg 02/15/20 09:00 02/16/20 08:52 Xarelto PO 10 mg DAILY GHAZAL Administration Tizanidine HCl 4 mg 02/16/20 09:00 02/16/20 15:12 Zanaflex PO 4 mg TID GHAZAL Administration PFSH Acute PFSH: Medical History Arthritis Atrial fibrillation Benign essential HTN Benign tumor of esophagus Bipolar disorder COPD (chronic obstructive pulmonary disease) DDD (degenerative disc disease) Diastolic heart failure Fibromyalgia GERD (gastroesophageal reflux disease) History of pleural effusion History of pulmonary embolism Hypotension Hypothyroidism Mitral regurgitation YUSRA (obstructive sleep apnea) Peripheral edema Polypharmacy PUD (peptic ulcer disease) Pulmonary HTN Spinal stenosis Surgical History S/P hysterectomy S/P thoracentesis S/P tubal ligation Family History Mother Hypertension Depression Bipolar disorder Father Hypertension Sister Bipolar disorder Daughter Bipolar disorder Social History Smoking and tobacco status: former smoker Alcohol intake: never Lives independently: Yes Vitals/I&O/Wt Last Vital Signs Temp 98.0 F 02/16/20 17:47 Pulse 107 H 02/16/20 17:47 Resp 22 H 02/16/20 17:47 BP 112/78 02/16/20 17:47 Pulse Ox 98 02/16/20 17:47 02/16/20 02/16/20 02/16/20 06:59 14:59 22:59 Intake Total 180 / 1050 600 / 600 360 / 960 Output Total 325 / 1175 550 / 550 Balance -145 / -125 50 / 50 360 / 410 Physical Exam Narrative: EXAM NARRATIVE: GENERAL: Patient is alert, awake and oriented x3. NECK: No jugular vein distension. HEENT: No cyanosis. No icterus. No pallor. HEART: Irregularly irregular S1 and S2. No murmur, rub or gallop. LUNGS: Decrease breath sound bilaterally ABDOMEN: Soft, nontender and nondistended. Positive bowel sounds. No guarding, rebound or tenderness. CENTRAL NERVOUS SYSTEM: Grossly nonfocal. EXTREMITIES: Lower extremities with 1+ edema bilaterally. Data Micro: Micro: Microbiology 02/14/20 21:23 Urine Culture - Pr eliminary Urine,Clean Catch 02/14/20 14:50 Blood Culture - Pr eliminary Blood NEGATIVE TO MARIAELENA E 02/14/20 14:54 Blood Culture - Pr eliminary Blood NEGATIVE TO MARIAELENA E A&P Assessment and plan (1) Diastolic heart failure: Patient continues to be in decompensated heart failure I will continue diuresis with 40 mg of IV Lasix twice a day. Status: Chronic Qualifiers: Heart failure chronicity: chronic Qualified Code(s): I50.32 - Chronic diastolic (congestive) heart failure (2) Atrial fibrillation: I will add digoxin to control the heart rate better without compromising blood pressure Status: Acute Qualifiers: Atrial fibrillation type: unspecified Qualified Code(s): I48.91 - Unspecified atrial fibrillation (3) History of pulmonary embolism: Continue anticoagulation Status: Chronic Coding Level of Care Code New Pt Acute Propeller Tester for g Fwd Patient Type New History Expanded Problem Focused Exam Expanded Problem Focused Medical Decision Making Moderate Complexity Diagnoses Diastolic heart failure I50.32 Heart failure chronicity: chronic Atrial fibrillation I48.91 Atrial fibrillation type: unspecified History of pulmonary embolism Z86.711
[2020-02-16] MEDS: FUROsemide 10 mg/mL SDV 4mL 40 MG IVP (20:20)
[2020-02-16 20:38] LABS: Digoxin 0.3 ng/mL (0.6-1.2)
[2020-02-16] MEDS: morphine ER (12 HR) 30 mg tablet PO (21:28)
--- NOTE | 2020-02-16 21:34 | PC.NURSE ---
Provided patient with a hat. Educated patient to void into the hat since she is receiving Lasix and to let staff empty it. Patient voiced understanding at this time.
[2020-02-17] VITALS (19 sets, daily range): BP systolic 129–158; BP diastolic 85–102; PULSE 88–124; RESP 12–28; TEMP 35.9–37; O2SAT 95–98
--- NOTE | 2020-02-17 02:31 | PC.NURSE ---
Patient requesting a muscle relaxer at this time. I told the patient that the doctor ordered the pain medication and muscle relaxers three times a day and the next one was scheduled at 0900. I told the patient the only PRN she had currently for pain was Tylenol and she stated she did not think that would help. I offered to call the night time hospitalist for her and see if they would give her something. Patient did not want me to call the doctor at this time and I told her to let me know if she did want me to call him. Patient voiced understanding.
--- NOTE | 2020-02-17 03:41 | PC.NURSE ---
Patient still awake at this time. Denies wanting me to call the doctor for any muscle relaxers. Patient just wanted Ice and that was provided. Will continue to monitor.
--- NOTE | 2020-02-17 04:59 | PC.NURSE ---
0442 Rounded on patient and she was in tears stating she was in pain. She stated how she took her medications at home and didn't understand why she had to be in pain every time she came to the hospital. I explained to the patient that they are switching her medications around to see if that will help with her labile blood pressures. Patient verbalized understanding but stated she could not take the pain anymore and asked if I could call the hospitalist and get a muscle relaxer for her because the spasms were unbearable. Zanaflex 4mg x1 PO order obtained.
[2020-02-17] MEDS: tizanidine 4 mg Tablet PO ×4 (05:10→20:54)
--- NOTE | 2020-02-17 05:38 | PC.NURSE ---
End of Shift: Patient did not rest this shift. Patient remains alert and oriented and vitals are stable. Call light is within reach and patient is ambulating to the bedside commode.
[2020-02-17 05:44] LABS: Basophils # 0.1 10^3/uL (0.0-0.1); Eosinophils # 0.1 10^3/uL (0.0-0.8); Eosinophils % 1.4 %; Hematocrit 43.3 % (37.0-47.0); Hemoglobin 13.2 g/dL (11.5-15.3); Lymphocytes # 2.4 10^3/uL (0.8-4.8); Lymphocytes % 23.9 %; Mean Corpuscular HGB Conc 30.5 g/dL (30.0-36.0); Mean Corpuscular Volume 95.2 fL (81-99); Mean Platelet Volume 10.4 fL (7.4-10.4); Monocytes # 1.2 10^3/uL (0.2-0.9); Monocytes % 11.8 %; Neutrophils # 6.2 10^3/uL (1.8-7.7); Neutrophils % 61.5 %; Nucleated Red Blood Cells % 0 %; Platelet Count 270 10^3/cmm (130-400); Red Blood Count 4.55 10^6/uL (4.1-5.3); Red Cell Distribution Width 20.3 % (12.1-15.1); White Blood Count 10.1 10^3/uL (4.0-10.0)
[2020-02-17 06:07] LABS: Alanine Aminotransferase 11 U/L (0-33); Alkaline Phosphatase 82 IU/L (35-105); Anion Gap 16.8 (5-19); Blood Urea Nitrogen 17 mg/dL (8-23); Calcium 10.3 mg/dL (8.5-10.5); Carbon Dioxide 26 mmol/L (22-29); Chloride 101 mmol/L (98-107); Globulin 3.2 g/dL (1.3-4.6); Glomerular Filtration Rate 62.6 mL/min (90-130); Glucose 109 mg/dL (65-115); Osmolality Calculated 287 mOsm/kg (285-295); Potassium 3.8 mmol/L (3.5-5.1); Sodium 140 mmol/L (136-145); Total Bilirubin 0.8 mg/dL (0.15-1.2); Total Protein 7.2 g/dL (6.6-8.7)
[2020-02-17 06:10] LABS: Aspartate Amino Transferase 18 U/L (0-32)
[2020-02-17] MEDS: FUROsemide 10 mg/mL SDV 4mL 40 MG IVP ×2 (07:47→19:41)
--- NOTE | 2020-02-17 08:30 | PC.SOCIAL ---
IMM Page 2 of IMM explained to patient. Initialed, dated, and timed and placed in chart.
[2020-02-17] MEDS: HYDROcodone-acetaminophen 5-325 mg Tablet 1 TAB PO ×3 (08:41→20:55)
[2020-02-17] MEDS: gabapentin 300 mg Capsule PO ×2 (08:42→18:39)
[2020-02-17] MEDS: metoprolol tartrate 50 mg Tablet PO ×2 (08:43→18:39)
[2020-02-17] MEDS: doxycycline 100 mg Tablet PO ×2 (08:43→18:39)
[2020-02-17] MEDS: fluoxetine 20 mg Capsule 40 MG PO (08:44)
[2020-02-17] MEDS: atorvastatin 40 mg Tablet 20 MG PO (08:44)
[2020-02-17] MEDS: rivaroxaban 10 mg Tablet PO (08:45)
[2020-02-17] MEDS: digoxin 125 mcg Tablet PO (08:45)
[2020-02-17] MEDS: aspirin 81 mg EC Tablet PO (09:37)
[2020-02-17] MEDS: pantoprazole 40 mg SDV IVP (09:38)
--- NOTE | 2020-02-17 09:38 | PC.NURSE ---
Aspirin delay waiting for pharmacy restock of pyxis. Protonix delay as nurse was occupied in another patient's room.
--- NOTE | 2020-02-17 10:15 | P.PN_ITS ---
Subjective Subjective: Interval history: Kenia is upset she is urinating quite a bit. She is upset because she hurts all the time. She states it is not just about this hospital stay, it is about her whole life. She voices to me that she does not know why she is still going on. Cardiology they evaluated the patient yesterday and added digoxin to her regimen for difficult to control atrial fibrillation as well as IV Lasix. Medications: Reviewed: Yes Vitals/I&O/Wt Last Vital Signs Temp 96.6 F L 02/17/20 04:00 Pulse 124 H 02/17/20 08:45 Resp 18 02/17/20 08:02 BP 158/96 02/17/20 04:00 Pulse Ox 98 02/17/20 08:02 02/16/20 02/17/20 02/17/20 22:59 06:59 14:59 Intake Total 360 / 960 390 / 1350 Output Total 1600 / 2150 Balance 360 / 410 -1210 / -800 Weight last 48 hrs Weight 128.185 kg Physical Exam 2 Narrative: EXAM NARRATIVE: General exam is a sad and tearful white female Cardiovascular regular rate and rhythm without murmur Lungs no wheezing today. Relatively clear Abdomen is soft, positive bowel sounds Extremities no cyanosis clubbing. 1+ edema is noted Data : 02/17/20 05:00 02/17/20 05:00 Micro: Microbiology 02/14/20 21:23 Urine Culture - Preliminary Urine,Clean Catch A&P Assessment and plan (1) Atrial fibrillation: Cardizem drip has since been discontinued Continue metoprolol 50 mg twice daily Daily digoxin 0.125 mg a day was added Continue Xarelto TSH was checked and normal. Status: Acute Qualifiers: Atrial fibrillation type: unspecified Qualified Code(s): I48.91 - Unspecified atrial fibrillation (2) Diarrhea: Awaiting C. difficile, but doubt significantly as patient is not having diarrhea in the hospital currently. CT scan negative for acute pathology Lipase was normal Status: Acute (3) Vomiting: Continue Protonix Zofran as needed Urinalysis checked. No obvious infection Nausea appears to have gone away Status: Acute (4) Hypertension: Blood pressure has been quite variable. This seems to decrease significantly with pain medication or muscle relaxant At this point I will try to keep the metoprolol at the same dose to stabilize heart rate. Muscle relaxant and hydrocodone was scheduled instead of as needed yesterday, at slightly lower dose, to hopefully give us more consistency to her blood pressures Hydralazine as needed Status: Acute (5) Elevated troponin: Elevated, suspect type II. Consider outpatient nuclear stress test. Previous angiogram 2012 normal. Status: Acute (6) Congestive heart failure: Consistent with acute diastolic heart failure. Cardiology concerned yesterday patient still with significant edema so Lasix was added COVID testing has been performed and negative Status: Acute Qualifiers: Heart failure chronicity: unspecified Heart failure type: unspecified Qualified Code(s): I50.9 - Heart failure, unspecified Additional A&P Information COPD, possible mild exacerbation. Continue breathing treatments. Continue doxycycline Bipolar disorder. She is very sad today, and has some passive thoughts about not going on, dying. Will involve psychiatry. She has very little social support, and needs set up for routine psychiatric care, possibly counseling. Chronic pain. Will attempt to continue her chronic narcotics. Xarelto will serve for DVT prophylaxis Full code Attestations Medical Necessity Statement*: Needs continued hospital stay for adjustment of medications for atrial fibrillation with rapid ventricular rate. 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
--- NOTE | 2020-02-17 13:08 | PM.PSYCN ---
Providers/Reason for Consult Consulting Physican/Specialty*: Amauri Serrano MD. Psychiatry. Reason for Consult*: Depression Attending Physician: Justus Hernandez MD Primary Care Provider: Carolyn Cesar DO Psych Consult HPI History of Present Illness Kenia Cano is a 65 year old female who presented to the cardiac stepdown unit endorsing depression. Also reporting some passive wish and overall exhaustion with the situation. She reports that she lives alone on a property that she owns and that her shortly after they purchased a property. She reports that she is also dealt with the of her brother very recently as well as the cancer and sickness and other siblings. She reports that she has children but that her economic situation somewhat limits the possible decision she can make in relation to changes in that circumstance. Additionally she has had significant medical comorbidities and weight down on her and made life more difficult. She reports that she has been on Prozac 40 mg for some time we discussed the risks benefits and alternatives of increasing the Prozac to 60 mg and she understood and agreed to proceed as is documented in this note. She reports that she has had her PCP prescribing her medication and we discussed that there would be value and making sure that she had someone to talk to about her psychosocial circumstances. She was open to this possibility. She reports that she started having psychiatric issues and treatment in her early 20s and has been on medications at different times since then. No reported psychiatric inpatient hospitalizations. No significant issues with alcohol or other drugs but she has had difficulty with cigarettes. Psychosocial history: She endorses that she has been multiple times and has 3 children. She did not graduate from high school or get her GED. Her parents had 4 children she was the oldest with 3 younger brothers. Examination the . She has had multiple different jobs throughout her life. She currently lives in a house alone. She reports she spends much of her time getting up to go to the bathroom herself or getting up to take her pets to the bathroom. She denies nursing home or other legal issues. Meds Current Medications: Current Medications Generic Name Dose Route Start Last Admin Trade Name Freq PRN Reason Stop Dose Admin Acetaminophen 650 mg 02/14/20 20:16 02/16/20 05:28 Tylenol PO 650 mg Q6H PRN Administration Mild/Mod Pain Or Temp >/= 101 Hydrocodone Bitart /Acetaminophen 1 tab 02/16/20 09:00 02/17/20 20:55 Sharon 5-325 Mg PO 1 tab TID GHAZAL Administration Albuterol/Ipratrop ium 1 puff 02/15/20 12:00 02/17/20 20:21 Combivent Respim at INHALATION 1 inhalation QID.RESPIRATORY S CH Administration Aspirin 81 mg 02/15/20 09:00 02/17/20 09:37 Aspirin Ec PO 81 mg DAILY GHAZAL Administration Atorvastatin Calci um 20 mg 02/15/20 09:00 02/17/20 08:44 Lipitor PO 20 mg DAILY GHAZAL Administration Digoxin 125 mcg 02/17/20 09:00 02/17/20 08:45 Lanoxin PO 125 mcg DAILY GHAZAL Administration Doxycycline Monohy drate 100 mg 02/15/20 09:00 02/17/20 18:39 Vibramycin PO 100 mg BID GHAZAL Administration Protocol Fluoxetine HCl 40 mg 02/15/20 09:00 02/17/20 08:44 Prozac PO 40 mg DAILY GHAZAL Administration Furosemide 40 mg 02/16/20 19:30 02/17/20 19:41 Lasix IVP 40 mg Q12H GHAZAL Administration Gabapentin 300 mg 02/14/20 20:16 02/17/20 18:39 Neurontin PO 300 mg BID GHAZAL Administration Hydralazine HCl 10 mg 02/14/20 20:16 02/18/20 05:30 Apresoline IVP 10 mg Q4H PRN Administration HYPERTENSION Metoclopramide HCl 10 mg 02/14/20 20:40 02/15/20 09:43 Reglan IVP 10 mg Q6H PRN Administration NAUSEA AND VOMITI NG Metoprolol Tartrat e 75 mg 02/17/20 19:30 02/17/20 19:41 Lopressor PO 75 mg BID GHAZAL Administration Morphine Sulfate 30 mg 02/15/20 21:00 02/17/20 22:31 Ms Contin PO 30 mg BEDTIME GHAZAL Administration Ondansetron HCl 4 mg 02/14/20 20:16 02/15/20 08:23 Zofran IVP 4 mg Q6H PRN Administration vomiting, or N/V if npo Pantoprazole Sodiu m 40 mg 02/17/20 20:00 02/17/20 19:41 Protonix PO 40 mg Q12H GHAZAL Administration Potassium Chloride 20 meq 02/17/20 09:00 02/17/20 18:39 Klor-Con 10 PO 20 meq BID GHAZAL Administration Rivaroxaban 10 mg 02/15/20 09:00 02/17/20 08:45 Xarelto PO 10 mg DAILY GHAZAL Administration Tizanidine HCl 4 mg 02/16/20 09:00 02/17/20 20:54 Zanaflex PO 4 mg TID GHAZAL Administration PFSH NPU PFSH: Medical History (Updated 02/18/20 @ 06:23 by Amauri Serrano MD) Arthritis Atrial fibrillation Benign essential HTN Benign tumor of esophagus Bipolar disorder COPD (chronic obstructive pulmonary disease) DDD (degenerative disc disease) Diastolic heart failure Fibromyalgia GERD (gastroesophageal reflux disease) History of pleural effusion History of pulmonary embolism Hypotension Hypothyroidism Mitral regurgitation YUSRA (obstructive sleep apnea) Peripheral edema Polypharmacy PUD (peptic ulcer disease) Pulmonary HTN Spinal stenosis Surgical History S/P hysterectomy S/P thoracentesis S/P tubal ligation Family History Mother Hypertension Depression Bipolar disorder Father Hypertension Sister Bipolar disorder Daughter Bipolar disorder Social History Smoking and tobacco status: former smoker Alcohol intake: never Lives independently: Yes Mental Status Exam MSE Comments: This is an obese white female with adequate dress, grooming and eye contact. No abnormal movements except for psychomotor retardation. Cooperative with exam in no acute distress. Speech was decreased rate normal volume. Mood described as depressed, affect subdued. Thought process organized. Thought content: Patient denied any suicidal or homicidal ideation, there were no delusions reported or noted. Attention and concentration were intact and memory appeared reliable but none were formally tested. She is alert and oriented x 3. Insight and judgment are fair. Vitals/I&O/Wt Last Vital Signs Temp 98.4 F 02/18/20 04:00 Pulse 85 02/18/20 04:00 Resp 14 02/18/20 04:00 BP 155/118 02/18/20 04:00 Pulse Ox 94 02/18/20 04:00 02/17/20 02/17/20 02/18/20 14:59 22:59 06:59 Intake Total 840 / 840 440 / 1280 150 / 1430 Output Total 1500 / 1500 1550 / 3050 600 / 3650 Balance -660 / -660 -1110 / -1770 -450 / -2220 Weight last 48 hrs Weight 125.917 kg Weight 128.185 kg Data NPU Micro: Micro: Microbiology 02/14/20 21:23 Urine Culture - Fi nal Urine,Clean Catch Microbiology 02/14/20 21:23 Urine,Clean Catch Urine Culture - Final A&P Assessment and plan (1) Sleep apnea: Status: Acute (2) Major depressive disorder: Status: Acute Additional A&P Information This is a 65-year-old white female with a long h/o depression and significant genetic loading for bipolar disorder, depression and other mental health issues presents with significant medical comorbidities and increasing depression.. 1. Continue current medication. Increase prozac to 60 mg po qd. 2. Encourage individual group and milieu therapy. 3. Continue to 15-minute checks for safety. 4. We will work with social work team for appropriate follow-up. 5. Will follow up Attestations NPU Medical Necessity Statement*: N/A. Please see primary team note for medical necessity. Coding Level of Care Code Acute University Teacher for Carlos Aguayo Diagnoses Sleep apnea G47.30 Major depressive disorder F32.9
--- NOTE | 2020-02-17 19:14 | PM.PN ---
Subjective Subjective: Interval history: Heart rate has slightly improved this morning she had episode of A. fib with RVR. Today she walked around. She is upset because she has not gotten pain medicine in the night. Breathing is better Medications: Reviewed: Yes Vitals/I&O/Wt Last Vital Signs Temp 97.8 F 02/17/20 08:00 Pulse 101 H 02/17/20 17:25 Resp 23 H 02/17/20 17:25 BP 145/102 02/17/20 17:25 Pulse Ox 95 02/17/20 17:25 02/17/20 02/17/20 02/17/20 06:59 14:59 22:59 Intake Total 390 / 1350 840 / 840 440 / 1280 Output Total 1600 / 2150 1500 / 1500 450 / 1950 Balance -1210 / -800 -660 / -660 -10 / -670 Weight last 48 hrs Weight 282 lb 9.6 oz Physical Exam Narrative: EXAM NARRATIVE: GENERAL: Patient is alert, awake and oriented x3. NECK: No jugular vein distension. HEENT: No cyanosis. No icterus. No pallor. HEART: Irregularly irregular S1 and S2. No murmur, rub or gallop. LUNGS: Decrease breath sound bilaterally ABDOMEN: Soft, nontender and nondistended. Positive bowel sounds. No guarding, rebound or tenderness. CENTRAL NERVOUS SYSTEM: Grossly nonfocal. EXTREMITIES: Lower extremities without edema bilaterally. Data : 02/17/20 05:00 02/17/20 05:00 Micro: Microbiology 02/14/20 21:23 Urine Culture - Final Urine,Clean Catch A&P Assessment and plan (1) Diastolic heart failure: Appear to be well compensated . We will switch patient to oral diuretics now. Status: Chronic Qualifiers: Heart failure chronicity: chronic Qualified Code(s): I50.32 - Chronic diastolic (congestive) heart failure (2) Atrial fibrillation: Heart rate has improved we can increase metoprolol Status: Acute Qualifiers: Atrial fibrillation type: unspecified Qualified Code(s): I48.91 - Unspecified atrial fibrillation (3) History of pulmonary embolism: Continue anticoagulation Status: Chronic Attestations Medical Necessity Statement*: Require continuation hospitalization for above defined care. Coding Level of Care Code Established Pt Acute Senior Systems Administrator for Carlos Fwd Patient Type Established History Expanded Problem Focused Exam Expanded Problem Focused Medical Decision Making Moderate Complexity Diagnoses Diastolic heart failure I50.32 Heart failure chronicity: chronic Atrial fibrillation I48.91 Atrial fibrillation type: unspecified History of pulmonary embolism Z86.711
[2020-02-17] MEDS: metoprolol tartrate 50 mg Tablet 75 MG PO (19:41)
[2020-02-17] MEDS: pantoprazole DR 40 mg Tablet PO (19:41)
--- NOTE | 2020-02-17 19:45 | PC.NURSE ---
Patient is agitated that she has to take Lasix due to it making her urinate frequently. Patient educated that she has the right to refuse the medication, however she needs it for her health. Patient stated no just give it to me, I guess I'll just be miserable.
--- NOTE | 2020-02-17 20:56 | PC.NURSE ---
Patient states she does not want her Morphine at this time and will let me know when she wants it. Doctor notified.
[2020-02-17] MEDS: morphine ER (12 HR) 30 mg tablet PO (22:31)
[2020-02-18] VITALS (17 sets, daily range): BP systolic 101–159; BP diastolic 74–134; PULSE 85–135; RESP 11–28; TEMP 36.7–37.1; O2SAT 94–98
[2020-02-18] MEDS: hyDRALAzine 20 mg/mL INJ 1 mL 10 MG IVP (05:30)
[2020-02-18 06:10] LABS: Anion Gap 12.9 (5-19); Blood Urea Nitrogen 16 mg/dL (8-23); Calcium 10.3 mg/dL (8.5-10.5); Carbon Dioxide 33 mmol/L (22-29); Chloride 102 mmol/L (98-107); Glomerular Filtration Rate 71.8 mL/min (90-130); Glucose 136 mg/dL (65-115); Osmolality Calculated 296 mOsm/kg (285-295); Potassium 3.9 mmol/L (3.5-5.1); Sodium 144 mmol/L (136-145)
--- NOTE | 2020-02-18 06:20 | PC.NURSE ---
Patient's blood pressure was 155/118. PRN Hydralazine given. Patient's blood pressure is now 153/98.
--- NOTE | 2020-02-18 07:30 | PM.PN ---
Subjective Subjective: Interval history: Kenia was admitted 4 days ago on the with diarrhea, atrial fibrillation, hypertensive urgency, elevated troponin and heart failure. She has had some difficulty controlling blood pressure and heart rate. She was placed on a number of medications. Cardiology saw her 2 days ago on the . Digoxin was added. She is now on Xarelto, digoxin, metoprolol, Lasix and a statin. Her heart rate is consistently below 100 however her blood pressure remains high. Today it is 155/118. There is psychiatric issues which overlay this. Psychiatry saw her yesterday. This morning she is fast asleep. Her Lasix administration is still intravenous. Medications: Reviewed: Yes Vitals/I&O/Wt Last Vital Signs Temp 98.4 F 02/18/20 04:00 Pulse 85 02/18/20 04:00 Resp 14 02/18/20 04:00 BP 155/118 02/18/20 04:00 Pulse Ox 94 02/18/20 04:00 02/17/20 02/18/20 02/18/20 22:59 06:59 14:59 Intake Total 440 / 1280 150 / 1430 Output Total 1550 / 3050 600 / 3650 Balance -1110 / -1770 -450 / -2220 Weight last 48 hrs Weight 277 lb 9.6 oz Weight 282 lb 9.6 oz Physical Exam Narrative: EXAM NARRATIVE: GENERAL: In general she is sleepy this morning and difficult to arouse HEENT: Exam within normal limits. NECK: Supple without jugular vein distention. The carotid upstroke is normal without bruits. BACK: Exam normal. LUNGS: Clear. HEART: Irregular rate and rhythm ABDOMEN: Benign without organomegaly or tenderness. EXTREMITIES: No edema. NEUROLOGIC: Exam normal. SKIN: Unremarkable. Data : 02/17/20 05:00 02/18/20 04:55 Micro: Microbiology 02/14/20 21:23 Urine Culture - Final Urine,Clean Catch A&P Assessment and plan (1) Major depressive disorder: Status: Acute (2) Elevated troponin: Status: Acute (3) Hypertension: Status: Acute (4) Vomiting: Status: Acute (5) Diarrhea: Status: Acute (6) Congestive heart failure: Status: Acute Qualifiers: Heart failure chronicity: unspecified Heart failure type: unspecified Qualified Code(s): I50.9 - Heart failure, unspecified (7) Chronic dyspnea: Status: Acute (8) Sleep apnea: Status: Acute (9) Morbid obesity: Status: Acute (10) Acute worsening of stage 3 chronic kidney disease: Status: Acute (11) Polypharmacy: Status: Acute (12) Atrial fibrillation: Status: Acute Qualifiers: Atrial fibrillation type: unspecified Qualified Code(s): I48.91 - Unspecified atrial fibrillation (13) Peripheral edema: Status: Chronic (14) History of pulmonary embolism: Status: Chronic Additional A&P Information I am going to add some Norvasc to try to get her blood pressure under better control. I am staying away from JAY inhibitors and angiotensin receptor blockers due to her elevated creatinine. Attestations Medical Necessity Statement*: Not applicable Coding Level of Care Code Established Pt Acute Brim Stretcher for Carlos Aguayo Patient Type Established History Detailed Exam Detailed Medical Decision Making Moderate Complexity Diagnoses Major depressive disorder F32.9 Elevated troponin R79.89 Hypertension I10 Vomiting R11.10 Diarrhea R19.7 Congestive heart failure I50.9 Heart failure chronicity: unspecified Heart failure type: unspecified Chronic dyspnea R06.00 Sleep apnea G47.30 Morbid obesity E66.01 Acute worsening of stage 3 chronic kidney disease N18.3 Polypharmacy Z79.899 Atrial fibrillation I48.91 Atrial fibrillation type: unspecified Peripheral edema R60.9 History of pulmonary embolism Z86.711
[2020-02-18] MEDS: gabapentin 300 mg Capsule PO ×2 (08:25→17:46)
[2020-02-18] MEDS: FUROsemide 10 mg/mL SDV 4mL 40 MG IVP ×2 (08:25→19:44)
[2020-02-18] MEDS: atorvastatin 40 mg Tablet 20 MG PO (08:25)
[2020-02-18] MEDS: metoprolol tartrate 50 mg Tablet 75 MG PO ×2 (08:26→17:46)
[2020-02-18] MEDS: doxycycline 100 mg Tablet PO ×2 (08:26→17:46)
[2020-02-18] MEDS: tizanidine 4 mg Tablet PO ×3 (08:26→21:48)
[2020-02-18] MEDS: aspirin 81 mg EC Tablet PO (08:26)
[2020-02-18] MEDS: fluoxetine 20 mg Capsule 60 MG PO (08:26)
[2020-02-18] MEDS: HYDROcodone-acetaminophen 5-325 mg Tablet 1 TAB PO ×3 (08:27→21:48)
[2020-02-18] MEDS: pantoprazole DR 40 mg Tablet PO ×2 (08:27→21:47)
[2020-02-18] MEDS: rivaroxaban 10 mg Tablet PO (08:27)
[2020-02-18] MEDS: digoxin 125 mcg Tablet PO (08:27)
--- NOTE | 2020-02-18 14:05 | PM.PN ---
Subjective Subjective: Interval history: Kenia reports she is doing a little better. No chest discomfort. No shortness of breath. Blood pressure was markedly elevated earlier today. Cardiology added Norvasc to her regimen Medications: Reviewed: Yes Vitals/I&O/Wt Last Vital Signs Temp 98.7 F 02/18/20 12:00 Pulse 85 02/18/20 13:00 Resp 12 02/18/20 12:00 BP 121/85 02/18/20 12:00 Pulse Ox 98 02/18/20 13:00 02/17/20 02/18/20 02/18/20 22:59 06:59 14:59 Intake Total 440 / 1280 150 / 1430 600 / 600 Output Total 1550 / 3050 600 / 3650 Balance -1110 / -1770 -450 / -2220 600 / 600 Weight last 48 hrs Weight 125.917 kg Weight 128.185 kg Physical Exam Narrative: EXAM NARRATIVE: General exam seems more upbeat today Cardiovascular regular rate and rhythm without murmur Lungs no wheezing today. Relatively clear Abdomen is soft, positive bowel sounds Extremities no cyanosis clubbing. Trace edema Data : 02/17/20 05:00 02/18/20 04:55 Micro: Microbiology 02/14/20 21:23 Urine Culture - Final Urine,Clean Catch A&P Assessment and plan (1) Atrial fibrillation: Cardizem drip has since been discontinued Continue metoprolol 50 mg twice daily Daily digoxin 0.125 mg a day was added Heart rate is under significantly better control Continue Xarelto TSH was checked and normal. Status: Acute Qualifiers: Atrial fibrillation type: unspecified Qualified Code(s): I48.91 - Unspecified atrial fibrillation (2) Diarrhea: Awaiting C. difficile, but doubt significantly as patient is not having diarrhea in the hospital currently. CT scan negative for acute pathology Lipase was normal Status: Acute (3) Vomiting: Continue Protonix Zofran as needed Urinalysis checked. No obvious infection Nausea appears to have gone away Status: Acute (4) Hypertension: Blood pressure has been quite variable. This seems to decrease significantly with pain medication or muscle relaxant At this point I will try to keep the metoprolol at the same dose to stabilize heart rate. Muscle relaxant and hydrocodone was scheduled instead of as needed yesterday, at slightly lower dose, to hopefully give us more consistency to her blood pressures Hydralazine as needed Norvasc added today by cardiology Status: Acute (5) Elevated troponin: Elevated, suspect type II. Consider outpatient nuclear stress test. Previous angiogram 2012 normal. Status: Acute (6) Congestive heart failure: Consistent with acute diastolic heart failure. Cardiology concerned yesterday patient still with significant edema so Lasix was added. She has diuresed about a liter. Continue IV Lasix currently COVID testing has been performed and negative Status: Acute Qualifiers: Heart failure chronicity: unspecified Heart failure type: unspecified Qualified Code(s): I50.9 - Heart failure, unspecified Additional A&P Information COPD, possible mild exacerbation. Continue breathing treatments. Continue doxycycline Bipolar disorder. She is very sad today, and has some passive thoughts about not going on, dying. Will involve psychiatry. She has very little social support, and needs set up for routine psychiatric care, possibly counseling. Chronic pain. Will attempt to continue her chronic narcotics. Xarelto will serve for DVT prophylaxis Full code I suspect she can be discharged tomorrow if blood pressure is been under better control. Certainly heart failure will be compensated by then the way she looks today. Resume home health on discharge Attestations Medical Necessity Statement*: Needs continued diuresis with IV Lasix secondary to heart failure and adjustment of medication for elevated blood pressures Coding Level of Care Code Acute Field Hockey Coach for g Fwd Diagnoses Atrial fibrillation I48.91 Atrial fibrillation type: unspecified Diarrhea R19.7 Vomiting R11.10 Hypertension I10 Elevated troponin R79.89 Congestive heart failure I50.9 Heart failure chronicity: unspecified Heart failure type: unspecified
[2020-02-18] MEDS: morphine ER (12 HR) 30 mg tablet PO (21:47)
--- NOTE | 2020-02-18 23:13 | PC.NURSE ---
When asking patient about her nighttime pain medications I asked if she wanted them all at once or spread out. She stated that the doctor had had discussed with her that she needed to take the Zanaflex, morphine, and hydrocodone together to work better. Adminstered pain medication as ordered and patients wishes at 2145.
[2020-02-19] VITALS (10 sets, daily range): BP systolic 102–184; BP diastolic 70–127; PULSE 82–120; RESP 12–24; TEMP 36.5–36.8; O2SAT 96–97
[2020-02-19 05:01] LABS: Basophils # 0.1 10^3/uL (0.0-0.1); Eosinophils # 0.2 10^3/uL (0.0-0.8); Eosinophils % 1.9 %; Hematocrit 44.9 % (37.0-47.0); Hemoglobin 13.7 g/dL (11.5-15.3); Lymphocytes # 3.1 10^3/uL (0.8-4.8); Lymphocytes % 30.3 %; Mean Corpuscular HGB Conc 30.5 g/dL (30.0-36.0); Mean Corpuscular Hemoglobin 28.5 pg (28.0-34.0); Mean Corpuscular Volume 93.5 fL (81-99); Mean Platelet Volume 10.3 fL (7.4-10.4); Monocytes % 9.5 %; Neutrophils # 5.9 10^3/uL (1.8-7.7); Nucleated Red Blood Cells % 0 %; Platelet Count 329 10^3/cmm (130-400); Red Cell Distribution Width 19.8 % (12.1-15.1); White Blood Count 10.3 10^3/uL (4.0-10.0)
--- NOTE | 2020-02-19 05:10 | PC.NURSE ---
End of shift: After pain medication was administered patient rested well with her CPAP on. Vitals remain stable and patient remains AxO x3.
[2020-02-19 05:15] LABS: Anion Gap 14.1 (5-19); Blood Urea Nitrogen 18 mg/dL (8-23); Calcium 10.5 mg/dL (8.5-10.5); Carbon Dioxide 34 mmol/L (22-29); Chloride 98 mmol/L (98-107); Glomerular Filtration Rate 62.6 mL/min (90-130); Glucose 134 mg/dL (65-115); Osmolality Calculated 292 mOsm/kg (285-295); Potassium 4.1 mmol/L (3.5-5.1); Sodium 142 mmol/L (136-145)
--- NOTE | 2020-02-19 06:53 | P.PN_ITS ---
Subjective Subjective: Interval history: Kenia thinks she feels little better this morning. Heart rates are consistently below 100 bpm. She remains on IV Lasix. She states that her breathing is improved. No chest pain. Her back hurts because of the hospital bed. Medications: Reviewed: Yes Vitals/I&O/Wt Last Vital Signs Temp 98.3 F 02/19/20 04:00 Pulse 85 02/19/20 04:00 Resp 24 H 02/19/20 04:00 BP 144/110 02/19/20 04:00 Pulse Ox 97 02/19/20 04:00 02/18/20 02/18/20 02/19/20 14:59 22:59 06:59 Intake Total 600 / 600 480 / 1080 150 / 1230 Output Total 2100 / 2100 600 / 2700 Balance 600 / 600 -1620 / -1020 -450 / -1470 Weight last 48 hrs Weight 279 lb 4.8 oz Weight 277 lb 9.6 oz Physical Exam Narrative: EXAM NARRATIVE: GENERAL: Comfortable on the side of the bed in a chair HEENT: Exam within normal limits. NECK: Supple without jugular vein distention. The carotid upstroke is normal without bruits. BACK: Exam normal. LUNGS: Clear. HEART: Irregular rate and rhythm ABDOMEN: Benign without organomegaly or tenderness. EXTREMITIES: No edema. NEUROLOGIC: Exam normal. SKIN: Unremarkable. Data : 02/19/20 04:25 02/19/20 04:25 A&P Assessment and plan (1) Major depressive disorder: Status: Acute (2) Elevated troponin: Status: Acute (3) Hypertension: Status: Acute (4) Vomiting: Status: Acute (5) Diarrhea: Status: Acute (6) Congestive heart failure: Status: Acute Qualifiers: Heart failure chronicity: unspecified Heart failure type: unspecified Qualified Code(s): I50.9 - Heart failure, unspecified (7) Chronic dyspnea: Status: Acute (8) Morbid obesity: Status: Acute (9) Thoracic back pain: Status: Acute (10) Sleep apnea: Status: Acute (11) Acute worsening of stage 3 chronic kidney disease: Status: Acute (12) Polypharmacy: Status: Acute (13) Atrial fibrillation: Status: Acute Qualifiers: Atrial fibrillation type: unspecified Qualified Code(s): I48.91 - Unspe cified atrial fibrillation (14) Diastolic heart failure: Status: Chronic Qualifiers: Heart failure chronicity: chronic Qualified Code(s): I50.32 - Chronic diastolic (congestive) heart failure (15) Peripheral edema: Status: Chronic (16) History of pulmonary embolism: Status: Chronic (17) Benign essential HTN: Status: Chronic (18) Anticoagulation adequate with anticoagulant therapy: Status: Acute Attestations Medical Necessity Statement*: Not applicable Coding Level of Care Code Established Pt Acute Wire Drawing Die Maker for Carlos Fwvale Patient Type Established History Comprehensive Exam Comprehensive Medical Decision Making High Complexity Diagnoses Major depressive disorder F32.9 Elevated troponin R79.89 Hypertension I10 Vomiting R11.10 Diarrhea R19.7 Congestive heart failure I50.9 Heart failure chronicity: unspecified Heart failure type: unspecified Chronic dyspnea R06.00 Morbid obesity E66.01 Thoracic back pain M54.6 Sleep apnea G47.30 Acute worsening of stage 3 chronic kidney disease N18.3 Polypharmacy Z79.899 Atrial fibrillation I48.91 Atrial fibrillation type: unspecified Diastolic heart failure I50.32 Heart failure chronicity: chronic Peripheral edema R60.9 History of pulmonary embolism Z86.711 Benign essential HTN I10 Anticoagulation adequate with anticoagulant therapy Z79.01
[2020-02-19] MEDS: digoxin 125 mcg Tablet PO (08:32)
[2020-02-19] MEDS: gabapentin 300 mg Capsule PO (08:32)
[2020-02-19] MEDS: rivaroxaban 10 mg Tablet PO (08:32)
[2020-02-19] MEDS: pantoprazole DR 40 mg Tablet PO (08:32)
[2020-02-19] MEDS: HYDROcodone-acetaminophen 5-325 mg Tablet 1 TAB PO (08:32)
[2020-02-19] MEDS: metoprolol tartrate 50 mg Tablet 75 MG PO (08:32)
[2020-02-19] MEDS: FUROsemide 10 mg/mL SDV 4mL 40 MG IVP (08:33)
[2020-02-19] MEDS: atorvastatin 40 mg Tablet 20 MG PO (08:33)
[2020-02-19] MEDS: fluoxetine 20 mg Capsule 60 MG PO (08:33)
[2020-02-19] MEDS: aspirin 81 mg EC Tablet PO (08:34)
[2020-02-19] MEDS: doxycycline 100 mg Tablet PO (08:34)
[2020-02-19] MEDS: tizanidine 4 mg Tablet PO (08:34)
--- NOTE | 2020-02-19 11:00 | DCPLANNER ---
Pg 2 of IM updated and reviewed with pt. No questions, copy provided.
--- NOTE | 2020-02-19 11:47 | P.DS_ITS ---
Discharge Providers Date of Admission: 02/14/20 17:34 Date of Discharge: February 19, 2020 Attending Provider at Admission: Justus Hernandez MD Attending Provider at Discharge: Justus Hernandez MD Primary Care Provider: Carolyn Cesar DO Diagnoses at Discharge Discharge Diagnosis (1) Major depressive disorder: Status: Acute Problem details: Fluoxetine increased (2) Elevated troponin: Status: Acute Problem details: Type II. We will follow-up with cardiology (3) Hypertension: Status: Acute (4) Vomiting: Status: Acute (5) Diarrhea: Status: Acute (6) Congestive heart failure: Status: Acute Qualifiers: Heart failure chronicity: unspecified Heart failure type: unspecified Qualified Code(s): I50.9 - Heart failure, unspecified (7) Chronic dyspnea: Status: Acute (8) Morbid obesity: Status: Acute (9) Thoracic back pain: Status: Acute (10) Sleep apnea: Status: Acute (11) Acute worsening of stage 3 chronic kidney disease: Status: Acute (12) Polypharmacy: Status: Acute (13) Atrial fibrillation: Status: Acute Problem details: Metoprolol increased to 75 mg twice daily, and digoxin added Qualifiers: Atrial fibrillation type: unspecified Qualified Code(s): I48.91 - Unspecified atrial fibrillation (14) Diastolic heart failure: Status: Chronic Problem details: Improved compensation. Lasix to 40 mg once daily Qualifiers: Heart failure chronicity: chronic Qualified Code(s): I50.32 - Chronic diastolic (congestive) heart failure (15) Peripheral edema: Status: Chronic (16) History of pulmonary embolism: Status: Chronic (17) Benign essential HTN: Status: Chronic (18) Anticoagulation adequate with anticoagulant therapy: Status: Acute Reason for Visit Reason for Visit: Reason For Visit: resp distress Hospital Course Hospital Course: Kenia is a 65-year-old white female who presented to the hospital with dyspnea, atrial fibrillation and rapid ventricular rate. She was also having some nausea and vomiting and elevated blood pressures. Lasix was initiated. COVID testing was initiated which ultimately was negative. CT scan abdomen and pelvis demonstrated nothing acute. During her hospital stay medication was adjusted and she was diuresed. In particular her metoprolol was increased to 75 mg twice daily and digoxin was added for rate control. . Psychiatry consultation was also obtained secondary to depression and Prozac was increased. It was noted she had some pulse variations in blood pressure elevations in the morning, when her metoprolol was not spaced 12 hours apart. She was encouraged to keep this 12-hour spacing rather constant. She will discharge on a higher dose of Lasix, 40 mg daily. She will follow-up with cardiology, and her primary care provider and have a BMP next week. Physical Exam Narrative: EXAM NARRATIVE: General exam no apparent distress Cardiovascular irregular, irregular with controlled rate Lungs clear Abdomen is soft with positive bowel sounds Extremities no cyanosis clubbing or edema Discharge Data Data Completed and Pending: Completed Studies During Hospitalization Category Date Time Status CT abdomen pelvis w con* [id number] Urge nt Cat Scan 02/14/20 17:54 Completed XR chest 1V tray ble [id number] Urgent Exams 02/14/20 14:36 Completed Pending at discharge Category Date Time Status Blood Culture Sta t Lab 02/14/20 14:50 Results Clostridium Diffi cile BY PCR Routin e Lab 02/14/20 20:16 Uncollected Labs from last 24 hours 02/19/20 02/19/20 04:25 04:25 WBC 10.3 H RBC 4.80 Hgb 13.7 Hct 44.9 MCV 93.5 MCH 28.5 MCHC 30.5 RDW 19.8 H Plt Count 329 MPV 10.3 Neut % (Auto) 57.0 Lymph % (Auto) 30.3 [place] % (Auto) 9.5 Eos % (Auto) 1.9 Baso % (Auto) 1.0 Neut # (Auto) 5.9 Lymph # (Auto) 3.1 [place] # (Auto) 1.0 H Eos # (Auto) 0.2 Baso # (Auto) 0.1 Nucleated RBC % (a uto) 0 Nucleated RBCs # 0.0 Sodium 142 Potassium 4.1 Chloride 98 Carbon Dioxide 34 H Anion Gap 14.1 BUN 18 Creatinine 0.9 GFR Calculation 62.6 L Glucose 134 H Calculated Osmolal ity 292 Calcium 10.5 Vitals: Last Vital Signs Temp 97.8 F 02/19/20 11:37 Pulse 82 02/19/20 11:37 Resp 22 H 02/19/20 11:37 BP 104/82 02/19/20 11:37 Pulse Ox 96 02/19/20 11:37 Discharge Plan Discharge Patient Disposition: Home Health Service Condition: Fair Prescriptions: New metoprolol tartrate 50 mg Tablet 75 mg PO BID Qty: 90 RF: 0 doxycycline monohydrate 100 mg Tablet 100 mg PO BID Qty: 10 RF: 0 digoxin 125 mcg (0.125 mg) Tablet 125 mcg PO DAILY Qty: 30 RF: 0 fluoxetine 20 mg Capsule 60 mg PO DAILY Qty: 90 RF: 0 furosemide [Lasix] 40 mg tablet 40 mg PO DAILY Qty: 30 RF: 0 Continued morphine 30 mg capsule, ER multiphase 24 hr 30 mg PO BID RF: 0 Lipitor 20 mg tablet 20 mg PO DAILY Qty: 30 RF: 0 potassium chloride [Klor-Con 10] 10 mEq tablet extended release 10 meq PO BID Qty: 60 RF: 1 tizanidine 4 mg capsule 8 mg PO TID PRN (Reason: MUSCLE SPASMS) RF: 0 Combivent Respimat 20-100 mcg/actuation mist 2 puff INHALATION QID RF: 0 albuterol sulfate 2.5 mg /3 mL (0.083 %) solution for nebulization 2.5 mg INHALATION BID PRN (Reason: Shortness Of Breath) RF: 0 Xarelto 10 mg tablet 10 mg PO DAILY RF: 0 aspirin [Adult Low Dose Aspirin] 81 mg tablet,delayed release (DR/EC) 81 mg PO DAILY RF: 0 fluticasone propionate [Allergy Relief (fluticasone)] 50 mcg/actuation spray,suspension 2 spray INTRANASAL DAILY RF: 0 hydrocodone-acetaminophen 10-325 mg tablet 1 tab PO Q6H PRN (Reason: Pain) RF: 0 cholecalciferol (vitamin D3) 1,000 unit capsule 2,000 unit PO DAILY RF: 0 loperamide [Anti-Diarrheal (loperamide)] 2 mg capsule 2 mg PO DIRECTED PRN (Reason: Diarrhea) RF: 0 multivitamin Tablet 1 tab PO DAILY RF: 0 amlodipine 2.5 mg tablet 2.5 mg PO DAILY Qty: 30 RF: 3 isosorbide mononitrate 30 mg tablet extended release 24 hr 30 mg PO DAILY Qty: 30 RF: 2 omeprazole 20 mg capsule,delayed release(DR/EC) 20 mg PO BID Qty: 90 RF: 4 ferrous sulfate 325 mg (65 mg iron) tablet 325 mg PO DAILY Qty: 30 RF: 0 (DME) blood-glucose meter [Accu-Chek Allie Plus Meter] Misc See Rx Instructions .ROUTE .MEDSUPPLY Qty: 1 RF: 0 (DME) Accu-Chek Allie Plus test strp Strip See Rx Instructions .ROUTE .MEDSUPPLY Qty: 100 RF: 2 (DME) lancets Misc See Rx Instructions .ROUTE .MEDSUPPLY Qty: 200 RF: 2 gabapentin 300 mg capsule 300 mg PO BID Qty: 0 RF: 0 Discontinued furosemide [Lasix] 20 mg tablet 20 mg PO DAILY RF: 0 metoprolol tartrate 25 mg tablet 25 mg PO .1.5 TAB AM, 1 TAB PM Qty: 75 RF: 3 fluoxetine 40 mg capsule 40 mg PO DAILY Qty: 90 RF: 2 Discharge Orders: Discharge Order (Routine); Ordered 02/19/20 Ordered By: Justus Hernandez Referrals: Pam Aranda MD [Physician] - 7-10 days Carolyn Cesar DO [Primary Care Provider] - 4-7 days Verona Reynolds NP [Family Provider] - Discharge Diet: Cardiac and Diabetic Discharge Activity: Increase activity as tolerated Activity Restrictions/Additional Instructions: Take all medicines as prescribed. Keep follow-up. Please arrange follow-up with behavioral health care for counseling and depression as well. Resume your home oxygen at 2 to 3 L as previously prescribed Discharge Attestations Time Spent in Discharge Care*: greater than 30 min Quality Metrics Clinical Quality Measures During this hospital stay, did patient experience: None Coding Level of Care Code Acute [employer] Diagnoses Major depressive disorder F32.9 Elevated troponin R79.89 Hypertension I10 Vomiting R11.10 Diarrhea R19.7 Congestive heart failure I50.9 Heart failure chronicity: unspecified Heart failure type: unspecified Chronic dyspnea R06.00 Morbid obesity E66.01 Thoracic back pain M54.6 Sleep apnea G47.30 Acute worsening of stage 3 chronic kidney disease N18.3 Polypharmacy Z79.899 Atrial fibrillation I48.91 Atrial fibrillation type: unspecified Diastolic heart failure I50.32 Heart failure chronicity: chronic Peripheral edema R60.9 History of pulmonary embolism Z86.711 Benign essential HTN I10 Anticoagulation adequate with anticoagulant therapy Z79.01
== END 2020-02-19 12:48 | disposition home health service (06) | DRG 308 ==
LOC: ER 17:25 → ICU 17:58 → CSU 02-16 17:27
PROVIDERS: Family Medicine; Internal Medicine; Internal Medicine Cardiovascular Disease; Admitting Provider Internal Medicine; Family Provider Nurse Practitioner Family; PCP Family Medicine; Visit Provider Internal Medicine
DX: I48.91 Unspecified atrial fibrillation (principal); I50.33 Acute on chronic diastolic (congestive) heart failure; I13.0 Hypertensive heart and chronic kidney disease with heart failure and stage 1 through stage 4 chronic kidney disease, or unspecified chronic kidney disease; J44.1 Chronic obstructive pulmonary disease with (acute) exacerbation; Z68.43 Body mass index [BMI] 50.0-59.9, adult; Z99.81 Dependence on supplemental oxygen; Z87.440 Personal history of urinary (tract) infections; E11.22 Type 2 diabetes mellitus with diabetic chronic kidney disease; N18.3 Chronic kidney disease, stage 3 (moderate); F32.9 Major depressive disorder, single episode, unspecified; M79.7 Fibromyalgia; K21.9 Gastro-esophageal reflux disease without esophagitis; Z86.711 Personal history of pulmonary embolism; E03.9 Hypothyroidism, unspecified; I34.0 Nonrheumatic mitral (valve) insufficiency; G47.33 Obstructive sleep apnea (adult) (pediatric); Z87.11 Personal history of peptic ulcer disease; I27.20 Pulmonary hypertension, unspecified; Z87.891 Personal history of nicotine dependence; R19.7 Diarrhea, unspecified; R11.10 Vomiting, unspecified; I16.0 Hypertensive urgency; Z79.82 Long term (current) use of aspirin; Z79.01 Long term (current) use of anticoagulants; Z79.891 Long term (current) use of opiate analgesic; M54.6 Pain in thoracic spine; E66.01 Morbid (severe) obesity due to excess calories; G47.30 Sleep apnea, unspecified; M19.90 Unspecified osteoarthritis, unspecified site; R79.89 Other specified abnormal findings of blood chemistry; G89.29 Other chronic pain; Z20.828 Contact with and (suspected) exposure to other viral communicable diseases
CPT/HCPCS: 12345; 36415; 71045; 74177; 80048; 80053; 80162; 81001; 83605; 83690; 83880; 84443; 84484; 85025; 87040; 87086; 87635; 93005; 94640; 94660; 96375; 97110; 97116; 97161; 97530; 99284; C9113; J0360; J1940; J2270; J2405; J2765; J3490; J3535; J7030; Q9967

== ENCOUNTER 2020-02-20 06:00 | Outpatient (RCR) | payer MEDICARE, SELFPAY | END 2020-03-20 23:59 | disposition home or self-care (01) | LOC: GPT 06:00 | PROVIDERS: PCP Family Medicine; Visit Provider Family Medicine | DX: M54.6 Pain in thoracic spine (principal) | CPT/HCPCS: 97032; 97110; 97112; 97140; 97530 ==

== ENCOUNTER → 2020-02-24 11:19 | Outpatient (BNVA) | payer MEDICARE, SELFPAY | PROVIDERS: Family Provider Nurse Practitioner Family; PCP Family Medicine; Visit Provider Family Medicine | DX: I50.32 Chronic diastolic (congestive) heart failure (principal) | CPT/HCPCS: 80048 ==

== ENCOUNTER 2020-03-21 06:00 | Outpatient (RCR) | payer MEDICARE, SELFPAY | END 2020-04-20 23:59 | disposition home or self-care (01) | LOC: GPT 06:00 | PROVIDERS: Family Provider Nurse Practitioner Family; PCP Family Medicine; Visit Provider Family Medicine | DX: M54.6 Pain in thoracic spine (principal) | CPT/HCPCS: 97032; 97110; 97530 ==

== ENCOUNTER → 2020-04-16 14:17 | Outpatient (BNVA) | payer MEDICARE, SELFPAY | PROVIDERS: Family Provider Nurse Practitioner Family; PCP Family Medicine; Visit Provider Family Medicine | DX: R35.0 Frequency of micturition (principal); F33.1 Major depressive disorder, recurrent, moderate; R11.2 Nausea with vomiting, unspecified | CPT/HCPCS: 80048; 81000 ==

== ENCOUNTER 2020-04-21 06:00 | Outpatient (RCR) | payer BC, SELFPAY | END 2020-05-21 23:59 | disposition home or self-care (01) | LOC: GPT 06:00 | PROVIDERS: Family Provider Nurse Practitioner Family; PCP Family Medicine; Visit Provider Family Medicine | DX: M54.6 Pain in thoracic spine (principal) | CPT/HCPCS: 97032; 97110; 97530 ==

== ENCOUNTER → 2020-05-24 13:33 | Outpatient (BNVA) | payer MEDICARE, SELFPAY | PROVIDERS: Family Provider Nurse Practitioner Family; PCP Family Medicine; Visit Provider Psychiatry & Neurology Psychiatry | DX: F33.2 Major depressive disorder, recurrent severe without psychotic features (principal) | CPT/HCPCS: 99204 ==

== ENCOUNTER → 2020-07-01 18:00 | Outpatient (BNVA) | payer MEDICARE, SELFPAY | PROVIDERS: Family Provider Nurse Practitioner Family; PCP Family Medicine; Visit Provider Nurse Practitioner | DX: Z11.59 Encounter for screening for other viral diseases (principal) | CPT/HCPCS: 87635 ==

== ENCOUNTER → 2020-08-30 14:25 | Outpatient (BNVA) | payer MEDICARE, SELFPAY | PROVIDERS: Family Provider Nurse Practitioner Family; PCP Family Medicine; Visit Provider Internal Medicine Cardiovascular Disease | DX: I48.91 Unspecified atrial fibrillation (principal) | CPT/HCPCS: 85610 ==

== ENCOUNTER → 2020-09-10 12:40 | Outpatient (BNVA) | payer MEDICARE, SELFPAY | PROVIDERS: Family Provider Nurse Practitioner Family; PCP Family Medicine; Visit Provider Dermatology | DX: Z79.01 Long term (current) use of anticoagulants (principal) | CPT/HCPCS: 85610 ==

== ENCOUNTER → 2020-10-25 14:33 | Outpatient (BNVA) | payer MEDICARE, SELFPAY | PROVIDERS: Family Provider Nurse Practitioner Family; PCP Family Medicine; Visit Provider Family Medicine | DX: I10 Essential (primary) hypertension (principal); E03.9 Hypothyroidism, unspecified; R73.03 Prediabetes; E78.5 Hyperlipidemia, unspecified; I48.91 Unspecified atrial fibrillation | CPT/HCPCS: 80053; 80061; 82043; 83036; 84443; 85025; 85610 ==

== ENCOUNTER → 2020-10-30 08:15 | Outpatient (BNVA) | payer MEDICARE, SELFPAY | PROVIDERS: Family Provider Nurse Practitioner Family; PCP Family Medicine; Visit Provider Psychiatry & Neurology Psychiatry | DX: F33.2 Major depressive disorder, recurrent severe without psychotic features (principal) | CPT/HCPCS: 99213 ==

== ENCOUNTER → 2020-11-26 14:41 | Outpatient (BNVA) | payer MEDICARE, SELFPAY | PROVIDERS: Family Provider Nurse Practitioner Family; PCP Family Medicine; Visit Provider Family Medicine | DX: E11.9 Type 2 diabetes mellitus without complications (principal); Z79.01 Long term (current) use of anticoagulants; I48.91 Unspecified atrial fibrillation; Z68.43 Body mass index [BMI] 50.0-59.9, adult; F17.211 Nicotine dependence, cigarettes, in remission | CPT/HCPCS: 80053; 85610 ==

== ENCOUNTER → 2020-12-06 13:55 | Outpatient (BNVA) | payer MEDICARE, SELFPAY | PROVIDERS: Family Provider Nurse Practitioner Family; PCP Family Medicine; Visit Provider Internal Medicine Cardiovascular Disease | DX: Z79.01 Long term (current) use of anticoagulants (principal) | CPT/HCPCS: 85610 ==

== ENCOUNTER → 2021-01-02 13:06 | Outpatient (BNVA) | payer MEDICARE, SELFPAY | PROVIDERS: Family Provider Nurse Practitioner Family; PCP Family Medicine; Visit Provider Internal Medicine Cardiovascular Disease | DX: Z79.01 Long term (current) use of anticoagulants (principal) | CPT/HCPCS: 85610 ==

== ENCOUNTER → 2021-01-21 12:53 | Outpatient (BNVA) | payer MEDICARE, SELFPAY | PROVIDERS: Family Provider Nurse Practitioner Family; PCP Family Medicine; Visit Provider Psychiatry & Neurology Psychiatry | DX: F33.2 Major depressive disorder, recurrent severe without psychotic features (principal); F33.1 Major depressive disorder, recurrent, moderate | CPT/HCPCS: 99213 ==

== ENCOUNTER → 2021-01-28 15:15 | Outpatient (BNVA) | payer MEDICARE, SELFPAY | PROVIDERS: Family Provider Nurse Practitioner Family; PCP Family Medicine; Visit Provider Family Medicine | DX: E11.9 Type 2 diabetes mellitus without complications (principal); J44.9 Chronic obstructive pulmonary disease, unspecified; I10 Essential (primary) hypertension | CPT/HCPCS: 80053; 83036 ==

== ENCOUNTER → 2021-05-20 15:38 | Outpatient (BNVA) | payer MEDICARE, SELFPAY | PROVIDERS: Family Provider Nurse Practitioner Family; PCP Family Medicine; Visit Provider Family Medicine | DX: E11.9 Type 2 diabetes mellitus without complications (principal); Z79.01 Long term (current) use of anticoagulants | CPT/HCPCS: 80053; 83036; 85610 ==

== ENCOUNTER → 2021-06-17 14:14 | Outpatient (BNVA) | payer MEDICARE, SELFPAY | PROVIDERS: Family Provider Nurse Practitioner Family; PCP Family Medicine; Visit Provider Family Medicine | DX: Z79.01 Long term (current) use of anticoagulants (principal) | CPT/HCPCS: 85610 ==

== ENCOUNTER → 2021-06-27 14:19 | Outpatient (BNVA) | payer MEDICARE, SELFPAY | PROVIDERS: Family Provider Nurse Practitioner Family; PCP Family Medicine; Visit Provider Internal Medicine Cardiovascular Disease | DX: Z79.01 Long term (current) use of anticoagulants (principal) | CPT/HCPCS: 85610 ==

== ENCOUNTER → 2021-07-15 13:31 | Outpatient (BNVA) | payer MEDICARE, SELFPAY | PROVIDERS: Family Provider Nurse Practitioner Family; PCP Family Medicine; Visit Provider Internal Medicine Cardiovascular Disease | DX: Z79.01 Long term (current) use of anticoagulants (principal) | CPT/HCPCS: 85610 ==

== ENCOUNTER → 2021-07-29 15:03 | Outpatient (BNVA) | payer MEDICARE, SELFPAY | PROVIDERS: Family Provider Nurse Practitioner Family; PCP Family Medicine; Visit Provider Internal Medicine Cardiovascular Disease | DX: I48.91 Unspecified atrial fibrillation (principal); Z79.01 Long term (current) use of anticoagulants | CPT/HCPCS: 85610 ==

== ENCOUNTER → 2021-11-11 15:25 | Outpatient (BNVA) | payer MEDICARE, SELFPAY | PROVIDERS: Family Provider Nurse Practitioner Family; PCP Family Medicine; Visit Provider Family Medicine | DX: E11.9 Type 2 diabetes mellitus without complications (principal) | CPT/HCPCS: 80053; 83036 ==

== ENCOUNTER → 2021-11-28 09:37 | Outpatient (BNVA) | payer MEDICARE, SELFPAY | PROVIDERS: Family Provider Nurse Practitioner Family; PCP Family Medicine; Visit Provider Internal Medicine | DX: Z79.01 Long term (current) use of anticoagulants (principal) ==

== ENCOUNTER → 2021-12-04 12:29 | Outpatient (BNVA) | payer MEDICARE, SELFPAY | PROVIDERS: Family Provider Nurse Practitioner Family; PCP Family Medicine; Visit Provider Internal Medicine | DX: Z79.01 Long term (current) use of anticoagulants (principal) ==

== ENCOUNTER → 2021-12-20 13:45 | Outpatient (BNVA) | payer MEDICARE, SELFPAY | PROVIDERS: Family Provider Nurse Practitioner Family; PCP Family Medicine; Visit Provider Internal Medicine | DX: I48.91 Unspecified atrial fibrillation (principal); Z79.01 Long term (current) use of anticoagulants ==

== ENCOUNTER → 2021-12-23 14:12 | Outpatient (BNVA) | payer MEDICARE, SELFPAY | PROVIDERS: Family Provider Nurse Practitioner Family; PCP Family Medicine; Visit Provider Nurse Practitioner Family | DX: I48.91 Unspecified atrial fibrillation (principal); I11.0 Hypertensive heart disease with heart failure; I50.32 Chronic diastolic (congestive) heart failure; Z87.891 Personal history of nicotine dependence | CPT/HCPCS: 36415; 80162; 99214 ==

== ENCOUNTER → 2021-12-27 08:45 | Outpatient (BNVA) | payer MEDICARE, SELFPAY | PROVIDERS: Family Provider Nurse Practitioner Family; PCP Family Medicine; Visit Provider Internal Medicine | DX: Z79.01 Long term (current) use of anticoagulants (principal) ==

== ENCOUNTER 2022-01-03 15:29 | Outpatient (CLI) | payer MEDICARE, SELFPAY ==
[2022-01-03 16:19] LABS: Digoxin 0.8 ng/mL (0.6-1.2)
== END 2022-01-03 15:30 | disposition home or self-care (01) ==
PROVIDERS: PCP Family Medicine; Visit Provider Nurse Practitioner Family
DX: I10 Essential (primary) hypertension (principal); I48.91 Unspecified atrial fibrillation; I50.32 Chronic diastolic (congestive) heart failure
CPT/HCPCS: 36415; 80162

== ENCOUNTER → 2022-01-08 10:59 | Outpatient (BNVA) | payer MEDICARE, SELFPAY | PROVIDERS: PCP Family Medicine; Visit Provider Internal Medicine | DX: Z79.01 Long term (current) use of anticoagulants (principal) ==

== ENCOUNTER → 2022-01-16 09:20 | Outpatient (BNVA) | payer MEDICARE, SELFPAY | PROVIDERS: PCP Family Medicine; Visit Provider Internal Medicine | DX: Z79.01 Long term (current) use of anticoagulants (principal) ==

== ENCOUNTER → 2022-01-24 09:37 | Outpatient (BNVA) | payer MEDICARE, SELFPAY | PROVIDERS: PCP Family Medicine; Visit Provider Internal Medicine Cardiovascular Disease | DX: Z79.01 Long term (current) use of anticoagulants (principal) ==

== ENCOUNTER → 2022-01-31 12:56 | Outpatient (BNVA) | payer MEDICARE, SELFPAY | PROVIDERS: PCP Family Medicine; Visit Provider Internal Medicine Cardiovascular Disease | DX: Z79.01 Long term (current) use of anticoagulants (principal) ==

== ENCOUNTER → 2022-02-04 13:46 | Outpatient (BNVA) | payer MEDICARE, SELFPAY | PROVIDERS: PCP Family Medicine; Visit Provider Internal Medicine Cardiovascular Disease | DX: Z79.01 Long term (current) use of anticoagulants (principal) ==

== ENCOUNTER → 2022-02-14 12:16 | Outpatient (BNVA) | payer MEDICARE, SELFPAY | PROVIDERS: PCP Family Medicine; Visit Provider Internal Medicine Cardiovascular Disease | DX: Z79.01 Long term (current) use of anticoagulants (principal) ==

== ENCOUNTER → 2022-02-21 10:31 | Outpatient (BNVA) | payer MEDICARE, SELFPAY | PROVIDERS: PCP Family Medicine; Visit Provider Internal Medicine Cardiovascular Disease | DX: Z79.01 Long term (current) use of anticoagulants (principal) ==

== ENCOUNTER 2022-02-25 12:31 | Outpatient (CLI) | payer MEDICARE, SELFPAY ==
[2022-02-25 13:46] LABS: Prothrombin Time (Patient) 53.4 Seconds (12.0-15.1)
[2022-02-25 14:31] LABS: INR 5.97 (0.83-1.21)
== END 2022-02-25 12:32 | disposition home or self-care (01) ==
LOC: LAB 12:33
PROVIDERS: PCP Family Medicine; Visit Provider Internal Medicine Cardiovascular Disease
DX: I48.91 Unspecified atrial fibrillation (principal)
CPT/HCPCS: 85610

== ENCOUNTER → 2022-02-28 08:50 | Outpatient (BNVA) | payer MEDICARE, SELFPAY | PROVIDERS: PCP Family Medicine; Visit Provider Internal Medicine Cardiovascular Disease | DX: Z79.01 Long term (current) use of anticoagulants (principal) ==

== ENCOUNTER → 2022-03-07 09:12 | Outpatient (BNVA) | payer MEDICARE, SELFPAY | PROVIDERS: PCP Family Medicine; Visit Provider Internal Medicine Cardiovascular Disease | DX: Z79.01 Long term (current) use of anticoagulants (principal) ==

== ENCOUNTER → 2022-03-13 16:58 | Outpatient (BNVA) | payer MEDICARE, SELFPAY | PROVIDERS: PCP Family Medicine; Visit Provider Internal Medicine Cardiovascular Disease | DX: Z79.01 Long term (current) use of anticoagulants (principal) ==

== ENCOUNTER → 2022-03-21 09:52 | Outpatient (BNVA) | payer MEDICARE, SELFPAY | PROVIDERS: PCP Family Medicine; Visit Provider Internal Medicine Cardiovascular Disease | DX: Z79.01 Long term (current) use of anticoagulants (principal) ==

== ENCOUNTER → 2022-03-28 11:28 | Outpatient (BNVA) | payer MEDICARE, SELFPAY | PROVIDERS: PCP Family Medicine; Visit Provider Internal Medicine Cardiovascular Disease | DX: Z79.01 Long term (current) use of anticoagulants (principal) ==

== ENCOUNTER → 2022-04-04 13:20 | Outpatient (BNVA) | payer MEDICARE, SELFPAY | PROVIDERS: PCP Family Medicine; Visit Provider Internal Medicine Cardiovascular Disease | DX: Z79.01 Long term (current) use of anticoagulants (principal) ==

== ENCOUNTER → 2022-04-10 10:44 | Outpatient (BNVA) | payer MEDICARE, SELFPAY | PROVIDERS: PCP Family Medicine; Visit Provider Internal Medicine Cardiovascular Disease | DX: Z79.01 Long term (current) use of anticoagulants (principal) ==

== ENCOUNTER → 2022-04-15 10:55 | Outpatient (BNVA) | payer MEDICARE, SELFPAY | PROVIDERS: PCP Family Medicine; Visit Provider Internal Medicine Cardiovascular Disease | DX: I48.91 Unspecified atrial fibrillation (principal); I11.0 Hypertensive heart disease with heart failure; I50.32 Chronic diastolic (congestive) heart failure; E78.5 Hyperlipidemia, unspecified; Z86.711 Personal history of pulmonary embolism | CPT/HCPCS: 93005; 99214 ==

== ENCOUNTER → 2022-04-22 12:32 | Outpatient (BNVA) | payer MEDICARE, SELFPAY | PROVIDERS: PCP Family Medicine; Visit Provider Family Medicine | DX: E11.9 Type 2 diabetes mellitus without complications (principal); E78.5 Hyperlipidemia, unspecified; F33.2 Major depressive disorder, recurrent severe without psychotic features; I10 Essential (primary) hypertension; R06.02 Shortness of breath | CPT/HCPCS: 80053; 80061; 83036; 83880; 84443 ==